=== PATIENT | female | born 1985 | race Caucasian/White ===

== ENCOUNTER → 2017-03-27 | Outpatient (CLI) | payer OTHER ==
[2017-03-27 11:42] LABS: CH 31.6; CHCM 34.9; HCT 43.7 % (34.0-46.0); HDW 2.22; HGB 15.2 gm/dL (11.4-16.0); MCH 31.6 pg (25.0-35.0); MCHC 34.8 g/dL (31.0-37.0); MCV 90.7 fL (80.0-100.0); Mean Platelet Volume 7.6; RBC 4.82 m/uL (3.80-5.40); RDW 11.8 % (11.5-15.5); WBC 8.2 k/uL (3.8-10.6)
[2017-03-27 11:57] LABS: Glucose 85 mg/dL (74-99); Non-African American GFR(MDRD) >60 (>60 ml/min/1.73 sqM)
[2017-03-27 12:27] LABS: Hepatitis B Surface Ag Index 0.05
[2017-03-27 15:48] LABS: Treponemal Ab Non-Reactive (Non-Reactive)
[2017-03-28 05:46] LABS: Toxoplasma Antibody (IgG) <3.0 IU/mL (<7.2)
== END | disposition home or self-care (01) ==
LOC: LABWHC1 10:45
PROVIDERS: ATTEND Obstetrics & Gynecology
DX: O26.811 Pregnancy related exhaustion and fatigue, first trimester (principal); Z3A.00 Weeks of gestation of pregnancy not specified
CPT/HCPCS: 36415; 82565; 82947; 85027; 86762; 86777; 86778; 86780; 86850; 86900; 86901; 87340; 87390

== ENCOUNTER 2017-09-14 15:37 | Outpatient (CLI) | payer OTHER ==
[2017-09-14 16:06] LABS: Amorphous Sediment,Urine Rare /hpf; Appearance,Urine Clear (Clear); Bacteria,Urine Occasional /hpf; Bilirubin,Urine Negative (Negative); Blood,Urine Negative (Negative); Color,Urine Light Yellow; Glucose,Urine (UA) Negative (Negative); Ketones,Urine Negative (Negative); Leukocyte Esterase,Urine Moderate (Negative); Mucus,Urine Rare /hpf; Nitrite,Urine Negative (Negative); Protein,Urine Negative (Negative); RBC,Urine 3 /hpf (0-5); Specific Gravity,Urine 1.004 (1.001-1.035); Squamous Epithelial Cell,Urine 2 /hpf (0-4); Urobilinogen,Urine <2.0 mg/dL (<2.0); WBC,Urine 19 /hpf (0-5)
[2017-09-14 16:13] VITALS: BP 118/68; PULSE 80; RESP 18; TEMP 97.6
--- NOTE | 2017-10-04 07:54 | P.MSEPDOC ---
Presenting Problems - Arrival Data Date of Arrival on Unit: 09/14/17 Time of Arrival on Unit: 15:30 Mode of Transport: Ambulatory - Complaint OB-Reason for Admission/Chief Complaint: Pain Comment: sharp lower abdominal pain since 1329 today Medical History - Information : 1 Para: 0 Term: 0 : 0 Abortions: Spontaneous or Elective: 0 Number of Living Children: 0 - Gestational Age Gestational Age by LISANDRA (wks/days): 31 Weeks and 6 Days Review of Systems - Review of Systems Constitutional: No problems Breast: No problems ENT: No problems Cardiovascular: No problems Respiratory: No problems Gastrointestinal: No problems Genitourinary: No problems Musculoskeletal: No problems Neurological: No problems Skin: No problems Vital Signs - Temperature Temperature: 97.6 F Temperature Source: Temporal Artery Scan - Pulse Right Sitting Brachial Pulse Rate: 80 Pulse Assessment Method: Automatic Cuff - Respirations Respiratory Rate: 18 Oxygen Delivery Method: Room Air - Blood Pressure Right Arm Sitting Blood Pressure: 118/68 Blood Pressure Mean: 84 Blood Pressure Source: Automatic Cuff Medical Screen Scoring (Pre) - Cervical Exam Dilation: Exam Deferred Effacement: Exam Deferred - Uterine Contractions Frequency: > 5 minutes apart = 1 Duration: N/A Intensity: N/A - Maternal Vital Signs Maternal Temperature: N/A Maternal Blood Pressure: N/A Signs of Preeclampsia: N/A Maternal Respirations: N/A - Pain Assessment Pain Location and Character: Abdomen Pain Scale Used: Numeric (1 - 10) Pain Intensity: 7 Pain Management Goal: 3 - Maternal Trauma Maternal Trauma: N/A - Assessment Baseline FHR: 130 Heart Rate - NICHD Category: Category I (Normal) = 0 NST: Reactive Position: N/A Station: N/A - Total Score Total Score (Pre): 1 - Level of Risk Level of Risk: Low (0-5) Medical Screen Scoring (Post) - Cervical Exam Dilation: 0 cm = 0 - Uterine Contractions Frequency: > 5 minutes apart = 1 Duration: N/A Intensity: N/A - Maternal Vital Signs Maternal Temperature: N/A Maternal Blood Pressure: N/A Signs of Preeclampsia: N/A Maternal Respirations: N/A - Pain Assessment Pain Intensity: 0 Pain Management Goal: 0 - Total Score Total Score (Post): 1 - Post Treatment Level of Risk Post Treatment Level of Risk: N/A Physician Notification (Post) - Physician Notified Physician Notified Date: 09/14/17 Physician Notified Time: 17:20 Physician/Practitioner Notified:: Dr Potter Spoke With: Dr Potter New Order Received: Yes - Notification Comment Comment: FFN neg, cervix closed, pt denies pain since laying down in triage. Discharge home and follow up with Dr Mott as scheduled. Disposition - Disposition Discharge Date: 09/14/17 Discharge Time: 17:37 I agree with the RN Medical Screening Exam: Yes Risk & Benefit of care provided described in d/c instruction: Yes Diagnosis: UNSPECIFIED ABDOMINAL PAIN
== END 2017-09-14 17:38 | disposition home or self-care (01) ==
LOC: FBPOP 15:37
PROVIDERS: ATTEND Obstetrics & Gynecology
DX: O26.893 Other specified pregnancy related conditions, third trimester (principal); R10.30 Lower abdominal pain, unspecified; Z3A.31 31 weeks gestation of pregnancy
CPT/HCPCS: 59025; 82731; 81001; G0463; 99213

== ENCOUNTER 2017-10-21 18:26 | Outpatient (CLI) | payer OTHER ==
[2017-10-21 18:58] VITALS: BP 117/85; PULSE 90; TEMP 98.4
[2017-10-21 20:12] VITALS: RESP 16
--- NOTE | 2017-10-22 06:45 | P.MSEPDOC ---
Presenting Problems - Arrival Data Date of Arrival on Unit: 10/21/17 Time of Arrival on Unit: 18:26 Mode of Transport: Ambulatory - Complaint OB-Reason for Admission/Chief Complaint: Possible Onset of Labor Comment: contractions every 5-10min, gush of fluid on saturday. Medical History - Information : 1 Para: 0 Term: 0 : 0 Abortions: Spontaneous or Elective: 0 Number of Living Children: 0 - Gestational Age Gestational Age by LISANDRA (wks/days): 37 Weeks and 1 Days - History Complications: Smoker Review of Systems - Review of Systems Constitutional: No problems Breast: No problems ENT: No problems Cardiovascular: No problems Respiratory: No problems Gastrointestinal: No problems Genitourinary: No problems Musculoskeletal: No problems Neurological: No problems Skin: No problems Vital Signs - Temperature Temperature: 98.4 F Temperature Source: Oral - Pulse Right Sitting Brachial Pulse Rate: 90 Pulse Assessment Method: Automatic Cuff - Respirations Respiratory Rate: 16 Oxygen Delivery Method: Room Air - Blood Pressure Right Arm Sitting Blood Pressure: 117/85 Blood Pressure Mean: 95 Blood Pressure Source: Automatic Cuff Medical Screen Scoring (Pre) - Cervical Exam Dilation: 1-3 cm = 1 - Uterine Contractions Frequency: > or = 36 weeks =2 Duration: > 40 seconds = 2 Intensity: N/A - Maternal Vital Signs Maternal Temperature: N/A Maternal Blood Pressure: N/A Signs of Preeclampsia: N/A Maternal Respirations: N/A - Pain Assessment Pain Location and Character: Abdomen Pain Scale Used: Numeric (1 - 10) Pain Intensity: 8 Pain Description: Cramping, Pressure - Maternal Trauma Maternal Trauma: N/A - Assessment Baseline FHR: 140 Heart Rate - NICHD Category: Category I (Normal) = 0 NST: Reactive Position: N/A Station: N/A - Total Score Total Score (Pre): 5 - Level of Risk Level of Risk: Low (0-5) Medical Screen Scoring (Post) - Cervical Exam Dilation: 1-3 cm = 1 Effacement: Exam Deferred Membranes: Intact - Uterine Contractions Frequency: > 5 minutes apart = 1 Duration: > 40 seconds = 2 Intensity: N/A - Maternal Vital Signs Maternal Temperature: N/A Maternal Blood Pressure: N/A Signs of Preeclampsia: N/A Maternal Respirations: N/A - Pain Assessment Pain Location and Character: Abdomen Pain Scale Used: Numeric (1 - 10) Pain Intensity: 8 Pain Management Goal: 0 Pain Description: *Acute, Pressure Pain Frequency: Intermittent Pain Duration Units: Minutes Pain Behavior: Vocalization Non-Pharmacological Interventions: Distraction, Relaxation Technique - Assessment Heart Rate: 145 Heart Rate - NICHD Category: Category I (Normal) = 0 NST: Reactive Position: N/A Station: N/A - Total Score Total Score (Post): 4 - Post Treatment Level of Risk Post Treatment Level of Risk: Low (0-5) Physician Notification (Post) - Physician Notified Physician Notified Date: 10/21/17 Physician Notified Time: 19:55 Physician/Practitioner Notified:: Dr. Valente Spoke With: Dr. Valente New Order Received: Yes (Discharge) - Notification Comment Comment: Pt cleared for discharge home at this time and to follow up with [facility] in office. Disposition - Disposition OB Disposition: Discharge to home Discharge Date: 10/21/17 Discharge Time: 19:55 I agree with the RN Medical Screening Exam: Yes Risk & Benefit of care provided described in d/c instruction: Yes Diagnosis: FALSE LABOR AT OR AFTER 37 COMPLETED WEEKS OF GESTATION
== END 2017-10-21 19:55 | disposition home or self-care (01) ==
LOC: FBPOP 18:26
PROVIDERS: ATTEND Obstetrics & Gynecology
DX: O47.1 False labor at or after 37 completed weeks of gestation (principal); O99.89 Other specified diseases and conditions complicating pregnancy, childbirth and the puerperium; N89.8 Other specified noninflammatory disorders of vagina; O99.333 Smoking (tobacco) complicating pregnancy, third trimester; Z3A.37 37 weeks gestation of pregnancy
CPT/HCPCS: 59025; G0463; 99213

== ENCOUNTER 2017-10-23 09:18 | Outpatient (CLI) | payer OTHER ==
[2017-10-23 10:25] VITALS: BP 112/75; PULSE 86; RESP 16; TEMP 98.6
--- NOTE | 2017-10-24 08:31 | P.MSEPDOC ---
Presenting Problems - Arrival Data Date of Arrival on Unit: 10/23/17 Time of Arrival on Unit: 09:18 Mode of Transport: Ambulatory - Complaint OB-Reason for Admission/Chief Complaint: Rule Out SROM Medical History - Information : 1 Para: 0 Term: 0 : 0 Abortions: Spontaneous or Elective: 0 Number of Living Children: 0 - Gestational Age Gestational Age by LISANDRA (wks/days): 37 Weeks and 3 Days - History Complications: Smoker Review of Systems - Review of Systems Constitutional: No problems Breast: No problems ENT: No problems Cardiovascular: No problems Respiratory: No problems Gastrointestinal: No problems Genitourinary: No problems Musculoskeletal: No problems Neurological: No problems Skin: No problems Vital Signs - Temperature Temperature: 98.6 F Temperature Source: Tympanic - Pulse Right Brachial Pulse Rate: 86 Pulse Assessment Method: Automatic Cuff - Respirations Respiratory Rate: 16 Oxygen Delivery Method: Room Air - Blood Pressure Right Arm Blood Pressure: 112/75 Blood Pressure Mean: 87 Blood Pressure Source: Automatic Cuff Medical Screen Scoring (Pre) - Cervical Exam Dilation: 1-3 cm = 1 Membranes: Intact - Uterine Contractions Frequency: N/A Duration: N/A Intensity: N/A - Maternal Vital Signs Maternal Temperature: N/A Signs of Preeclampsia: N/A Maternal Respirations: N/A - Pain Assessment Pain Location and Character: Abdomen Pain Scale Used: Numeric (1 - 10) Pain Intensity: 8 Pain Management Goal: 2 Pain Description: *Acute, Cramping Pain Radiation Location: na Pain Frequency: Intermittent Pain Duration: 2 Pain Duration Units: Minutes Pain Behavior: Vocalization Pain Aggravating Factors: None - Maternal Trauma Maternal Trauma: N/A - Assessment Baseline FHR: 145 Heart Rate - NICHD Category: Category I (Normal) = 0 NST: Reactive Position: N/A Station: N/A - Total Score Total Score (Pre): 1 - Level of Risk Level of Risk: Low (0-5) Physician Notification (Pre) - Physician Notified Physician Notified Date: 10/23/17 Physician Notified Time: 10:00 Physician/Practitioner Notifed:: Dr. Mott Spoke With: Dr. Mott New Order Received: Yes - Notification Comment Comment: Orders to d/c home Disposition - Disposition OB Disposition: Discharge to home Discharge Date: 02/07/18 Discharge Time: 10:15 I agree with the RN Medical Screening Exam: Yes Risk & Benefit of care provided described in d/c instruction: Yes Diagnosis: FALSE LABOR AT OR AFTER 37 COMPLETED WEEKS OF GESTATION
== END 2017-10-23 10:29 | disposition home or self-care (01) ==
LOC: FBPOP 09:18
PROVIDERS: ATTEND Obstetrics & Gynecology
DX: O47.1 False labor at or after 37 completed weeks of gestation (principal); Z3A.37 37 weeks gestation of pregnancy
CPT/HCPCS: 59025; 84112; G0463; 99213

== ENCOUNTER 2017-10-23 20:04 | Outpatient (CLI) | payer OTHER ==
[2017-10-23 20:56] VITALS: BP 123/71; PULSE 77; RESP 16; TEMP 96.7
--- NOTE | 2017-11-02 10:38 | P.MSEPDOC ---
Presenting Problems - Arrival Data Date of Arrival on Unit: 10/23/17 Time of Arrival on Unit: 20:04 Mode of Transport: Ambulatory - Complaint OB-Reason for Admission/Chief Complaint: Rule Out SROM Medical History - Information : 1 Para: 0 Term: 0 : 0 Abortions: Spontaneous or Elective: 0 Number of Living Children: 0 - Gestational Age Gestational Age by LISANDRA (wks/days): 37 Weeks and 3 Days - History Complications: Smoker Review of Systems - Review of Systems Constitutional: No problems Breast: No problems ENT: No problems Cardiovascular: No problems Respiratory: No problems Gastrointestinal: No problems Genitourinary: No problems Musculoskeletal: No problems Neurological: No problems Skin: No problems Vital Signs - Temperature Temperature: 96.7 F Temperature Source: Temporal Artery Scan - Pulse Right Brachial Pulse Rate: 77 Pulse Assessment Method: Automatic Cuff - Respirations Respiratory Rate: 16 Oxygen Delivery Method: Room Air O2 Sat by Pulse Oximetry: 97 - Blood Pressure Right Arm Blood Pressure: 123/71 Blood Pressure Mean: 88 Blood Pressure Source: Automatic Cuff Medical Screen Scoring (Pre) - Cervical Exam Dilation: 1-3 cm = 1 Membranes: Intact - Uterine Contractions Frequency: N/A - Maternal Vital Signs Maternal Temperature: N/A Maternal Blood Pressure: N/A Signs of Preeclampsia: N/A Maternal Respirations: N/A - Pain Assessment Pain Location and Character: Abdomen Pain Scale Used: Numeric (1 - 10) Pain Intensity: 6 Pain Description: Cramping Pain Frequency: Intermittent Pain Duration: 10 Pain Duration Units: Minutes Pain Behavior: None Exhibited Pain Aggravating Factors: None - Maternal Trauma Maternal Trauma: N/A - Assessment Baseline FHR: 150 Heart Rate - NICHD Category: Category I (Normal) = 0 NST: Reactive Position: N/A - Total Score Total Score (Pre): 1 - Level of Risk Level of Risk: Low (0-5) Physician Notification (Pre) - Physician Notified Physician Notified Date: 10/23/17 Physician Notified Time: 20:36 Physician/Practitioner Notifed:: Dr. Esparza Spoke With: Dr. Esparza New Order Received: Yes - Notification Comment Comment: Dr. Esparza called and given report on pt in triage. Pt c/o of ROM at 1900 with a gush after getting out of shower. Negative amnisure, vag exam of 1/ thick/high.Reactive NST. reported gbs pos. Orders recieved to d/c pt to home. Disposition - Disposition OB Disposition: Discharge to home Discharge Date: 10/23/17 Discharge Time: 20:40 I agree with the RN Medical Screening Exam: Yes Risk & Benefit of care provided described in d/c instruction: Yes Diagnosis: FALSE LABOR AT OR AFTER 37 COMPLETED WEEKS OF GESTATION
== END 2017-10-23 20:40 | disposition home or self-care (01) ==
LOC: FBPOP 20:04
PROVIDERS: ATTEND Obstetrics & Gynecology
DX: O47.03 False labor before 37 completed weeks of gestation, third trimester (principal); O99.333 Smoking (tobacco) complicating pregnancy, third trimester; Z3A.37 37 weeks gestation of pregnancy
CPT/HCPCS: 59025; 84112; G0463; 99213

== ENCOUNTER 2017-11-04 11:11 | Outpatient (CLI) | payer OTHER ==
[2017-11-04 13:38] VITALS: BP 116/73; PULSE 73; RESP 18; TEMP 97.9
--- NOTE | 2017-12-06 12:16 | P.MSEPDOC ---
Presenting Problems - Arrival Data Date of Arrival on Unit: 11/04/17 Time of Arrival on Unit: 11:11 Mode of Transport: Wheelchair Medical History - Information : 1 Para: 0 Term: 0 : 0 Abortions: Spontaneous or Elective: 0 Number of Living Children: 0 - Gestational Age Gestational Age by LISANDRA (wks/days): 39 Weeks and 1 Days Vital Signs - Temperature Temperature: 97.9 F Temperature Source: Temporal Artery Scan - Pulse Right Pulse Oximetery Pulse Rate: 73 Pulse Assessment Method: Pulse Oximetry - Respirations Respiratory Rate: 18 Oxygen Delivery Method: Room Air O2 Sat by Pulse Oximetry: 98 - Blood Pressure Right Arm Blood Pressure: 116/73 Blood Pressure Mean: 87 Blood Pressure Source: Automatic Cuff Medical Screen Scoring (Post) - Cervical Exam Dilation: 1-3 cm = 1 Membranes: Intact - Uterine Contractions Frequency: > 5 minutes apart = 1 Duration: > 40 seconds = 2 Intensity: N/A - Maternal Vital Signs Maternal Temperature: N/A Maternal Blood Pressure: N/A Signs of Preeclampsia: N/A Maternal Respirations: N/A - Pain Assessment Pain Location and Character: Abdomen Pain Scale Used: Numeric (1 - 10) Pain Intensity: 8 Pain Management Goal: 2 Pain Description: Cramping Pain Radiation Location: none Pain Frequency: Intermittent Pain Duration: 9 Pain Duration Units: Hours Pain Behavior: Vocalization Effects of Pain: none Pain Aggravating Factors: None Pharmacological Interventions: Discuss Pain Med Options Non-Pharmacological Interventions: Position/Reposition, Reduce Environmental Stimuli - Maternal Trauma Maternal Trauma: N/A - Assessment Heart Rate: 140 Heart Rate - NICHD Category: Category I (Normal) = 0 NST: Reactive Position: N/A Station: N/A - Total Score Total Score (Post): 4 - Post Treatment Level of Risk Post Treatment Level of Risk: Low (0-5) Physician Notification (Post) - Physician Notified Physician Notified Date: 11/04/17 Physician Notified Time: 12:36 Physician/Practitioner Notified:: Pantera Spoke With: Pantera New Order Received: Yes - Notification Comment Comment: pt here for contractions, cervix 1cm, 50%, blottable, no change after 1 hour. contractions spaced out after 45 min. order to discharge pt. Disposition - Disposition OB Disposition: Discharge to home Discharge Date: 11/04/17 Discharge Time: 12:40 I agree with the RN Medical Screening Exam: Yes Risk & Benefit of care provided described in d/c instruction: Yes Diagnosis: FALSE LABOR AT OR AFTER 37 COMPLETED WEEKS OF GESTATION
== END 2017-11-04 12:40 | disposition home or self-care (01) ==
LOC: FBPOP 11:11
PROVIDERS: ATTEND Obstetrics & Gynecology
DX: O47.1 False labor at or after 37 completed weeks of gestation (principal); Z3A.39 39 weeks gestation of pregnancy
CPT/HCPCS: 59025; G0463; 99213

== ENCOUNTER 2017-11-10 10:15 | Inpatient (IN) | payer OTHER ==
--- NOTE | 2017-11-14 20:23 | P.HPOB ---
History of Present Illness H&P Date: 11/14/17 Chief Complaint: Induction of labor This is a 32-year-old female 1 para 0 with an estimated date of confinement of 11/10/2017, estimated gestational age of 40-5/7 weeks, who presents for induction of labor secondary to postdates. She has been feeling frequent contractions. course has been essentially uncomplicated. labs: GC/Chlamydia-negative Toxoplasma-negative Random glucose-85 Hepatitis B surface antigen-negative Hemoglobin-15.2 HIV-nonreactive Rubella-nonimmune Blood type-oh positive Antibody screen-negative Obstetrical ultrasound-normal anatomy One hour Glucola-153 Three-hour Glucola-within normal limits Group B streptococcus-positive Obstetrical history: . Gynecologic history: History of Trichomonas and chlamydia treated many years ago Social history: She is single. Review of Systems Constitutional: Reports weight loss, Denies chills, Denies fever Eyes: denies blurred vision, denies pain Ears, nose, mouth and throat: Denies headache, Denies sore throat Cardiovascular: Denies chest pain, Denies shortness of breath Respiratory: Denies cough Genitourinary: Reports pelvic pain, Reports Musculoskeletal: Reports low back pain Neurological: Denies numbness, Denies weakness Past Medical History Past Medical History: No Reported History History of Any Multi-Drug Resistant Organisms: None Reported Past Surgical History: No Surgical Hx Reported Past Psychological History: No Psychological Hx Reported Smoking Status: Current every day smoker Past Alcohol Use History: None Reported Past Drug Use History: Marijuana Additional Drug Use History / Comment(s): History of marijuana prior to . - Past Family History Father Family Medical History: CVA/TIA Medications and Allergies Home Medications Medication Instructions Recorded Confirmed Type Pnv,Calcium 72/Iron/Folic Acid 1 tab PO DAILY 09/14/17 11/04/17 History [ Plus Tablet] Allergies Allergy/AdvReac Type Severity Reaction Status Date / Time No Known Allergies Allergy Verified 10/23/17 20:15 Exam Osteopathic Statement: *. No significant issues noted on an osteopathic structural exam other than those noted in the History and Physical/Consult. HEENT: Within normal limits Heart: Regular rate and rhythm Lungs: Clear to auscultation bilaterally Abdomen: Cervix: 1-1/2 cm/70%/-2 heart tones: 140s by Doppler Extremities: Negative Homans Assessment and Plan (1) 40 weeks gestation of Status: Acute Code(s): Z3A.40 - 40 WEEKS GESTATION OF SNOMED Code( s): 08735418 Plan: Proceed with oxytocin induction of labor. Expectant management. Epidural anesthesia if desired.
[2017-11-15] MEDS: LACTATED RINGERS 1,000 ML IV SCH ×3 (00:05→08:52)
[2017-11-15] MEDS: OXYTOCIN 20 UNITS/1000 ML NS 1,000 ML IV SCH ×2 (00:15→08:53)
[2017-11-15] MEDS ORDERED: CARBOPROST TROMETHAMINE 250 MCG/ML 1 ML AMP IM PRN (00:16)
[2017-11-15] MEDS ORDERED: OXYTOCIN 10 UNIT/ML 1 ML VIAL IM PRN (00:16)
[2017-11-15] MEDS ORDERED: LIDOCAINE 1% (PF) 10 MG/ML (30 ML SDV) SQ PRN (00:16)
[2017-11-15] MEDS ORDERED: METHYLERGONOVINE 0.2 MG/ML 1 ML AMP IM PRN (00:16)
[2017-11-15] MEDS ORDERED: LIDOCAINE 1% 20 ML VIAL (10MG/ML) FOR IV START INTRADERMA PRN (00:16)
[2017-11-15] MEDS ORDERED: AMPICILLIN 2,000 MG in SODIUM CHLORIDE 0.9% 100 ML IVPB STA (00:16)
[2017-11-15] MEDS ORDERED: TERBUTALINE 1 MG/ML VIAL SQ PRN (00:16)
[2017-11-15] MEDS ORDERED: BUTORPHANOL 1 MG/ML 1 ML VIAL IV PRN (00:23)
[2017-11-15] MEDS ORDERED: WITCH HAZEL 1 EACH MED..PAD TOPICAL PRN (00:27)
[2017-11-15] MEDS ORDERED: LANOLIN CREAM 5 GM TUBE TOPICAL PRN (00:27)
[2017-11-15] MEDS ORDERED: HYDROCORTISONE 2.5% RECTAL CREAM 30 GM TUBE RECTAL PRN (00:27)
[2017-11-15] MEDS ORDERED: ZOLPIDEM 5 MG TAB PO PRN (00:27)
[2017-11-15] MEDS ORDERED: diphenhydrAMINE 50 MG CAP PO PRN (00:27)
[2017-11-15] MEDS ORDERED: diphenhydrAMINE 50 MG/ML 1 ML VIAL IVP PRN ×2 (00:27)
[2017-11-15] MEDS ORDERED: MEASLES-MUMPS-RUBELLA VACC/PF 12,500 UNIT/0.5 ML VIAL SQ ONE (00:27)
[2017-11-15] MEDS ORDERED: diphenhydrAMINE 25 MG CAP PO PRN (00:27)
[2017-11-15] MEDS ORDERED: SIMETHICONE 80 MG CHEWABLE PO PRN (00:27)
[2017-11-15] MEDS ORDERED: BENZOCAINE/MENTHOL SPRAY 1 GM/SPRAY AEROSOL TOPICAL PRN (00:27)
--- NOTE | 2017-11-15 00:30 | P.HPOB ---
History of Present Illness H&P Date: 11/15/17 Chief Complaint: Intrauterine at term active labor Fully she is a 32-year-old at 39 weeks gestation who arrives dilated to complete and +2 station she was seen in labor and delivery earlier in the day was sent home. She reports that she continues to her family she was in labor but they did not bring her in until almost midnight and at that point she was having serious and severe pressure sensation like the baby was coming out on arrival they moved her immediately to [address] where she was noted be complete and +2 station. Please see delivery summary for information regarding this. She denies any past medical history or surgical history and she denies any problems with the . Pertinent labs do include B+ blood type, Rh antibody was negative, rubella was nonimmune, hepatitis B surface antigen and RPR were negative. HIV was also negative. She is group B strep positive but there is no time to get any antibiotics and. On physical exam her heart is regular, lungs are clear, extremities are without pain. Osteopathic exam is unremarkable. Abdomen soft and gravid uterus is noted. heart tones are on initial presentation in the 70s. Assessment intrauterine at term active labor: Spontaneous rupture membranes on arrival to labor and delivery: Suspected bradycardia. Plan expect vaginal delivery. Delivery was completed very shortly after initial evaluation. Past Medical History Past Medical History: No Reported History History of Any Multi-Drug Resistant Organisms: None Reported Past Surgical History: No Surgical Hx Reported Past Psychological History: No Psychological Hx Reported Smoking Status: Current every day smoker Past Alcohol Use History: None Reported Past Drug Use History: Marijuana Additional Drug Use History / Comment(s): History of marijuana prior to . - Past Family History Father Family Medical History: CVA/TIA Medications and Allergies Home Medications Medication Instructions Recorded Confirmed Type Pnv,Calcium 72/Iron/Folic Acid 1 tab PO DAILY 09/14/17 11/15/17 History [ Plus Tablet] Allergies Allergy/AdvReac Type Severity Reaction Status Date / Time No Known Allergies Allergy Verified 11/15/17 00:15 Exam Osteopathic Statement: *. No significant issues noted on an osteopathic structural exam other than those noted in the History and Physical/Consult. - Vital Signs Vital signs: Intake and Output 11/14/17 11/14/17 11/15/17 14:59 22:59 06:59 Other: Weight 63.503 kg Patient Weight 11/15/17 06:59 Weight 63.503 kg
--- NOTE | 2017-11-15 00:35 | P.PROBDLV ---
Vaginal Delivery Note - . Vaginal Delivery Note: Patient progressed to complete and pushing with precipitous delivery of a viable male over a first-degree perineal laceration with vacuum assist. On her initial presentation the immediate heart rate was recorded is in the 70s. Due to this low heart rate and being unable to tell if this is something that has been an ongoing process I did explain to the patient that we were going to do a vacuum-assisted delivery to expedite the delivery. Vacuum was placed with the baby in left occiput anterior position and once the vacuum was placed it was pumped up to the very bottom of the green on the vacuum. And with one pull and no pop offs in a steady mild traction with the patient doing her best to assist with pushing the baby's head was delivered. Immediately discontinued connected the vacuum and the total time of vacuum was on was less than 20 seconds. Anterior posterior shoulders were then easily delivered with gentle downward upper traction followed by the remainder the baby. Mouth nares were then bulb suctioned and baby was placed on mother's abdomen where the umbilical cord was clamped cut usual fashion an nursery personnel was present to assume care. Cord blood gas was obtained. Once this was accomplished placenta was then delivered intact and Pitocin was added to the IV. A first- degree perineal laceration was noted and easily repaired with 3-0 Vicryl following 1% Xylocaine for analgesia. scores were 6 at one and 9 at 5 minutes. Weight was 7 lbs. 6 oz. due to group B strep positive status and no antibiotics baby was taken to special care nursery.
[2017-11-15 00:48] LABS: Basophils # (A) 0.1 k/uL (0-0.2); Basophils % (A) 0 %; Eosinophils % (A) 0 %; HCT 45.2 % (34.0-46.0); HGB 15.3 gm/dL (11.4-16.0); Lymphocytes # (A) 1.7 k/uL (1.0-4.8); Lymphocytes % (A) 7 %; MCH 31.9 pg (25.0-35.0); MCHC 33.8 g/dL (31.0-37.0); MCV 94.4 fL (80.0-100.0); Mean Platelet Volume 9.6; Monocytes # (A) 0.7 k/uL (0-1.0); Monocytes % (A) 3 %; Neutrophils # (A) 22.2 k/uL (1.3-7.7); Neutrophils % (A) 89 %; Platelet Count 210 k/uL (150-450); RDW 12.5 % (11.5-15.5); WBC 24.8 k/uL (3.8-10.6)
[2017-11-15] MEDS: SENNOSIDES-DOCUSATE SODIUM 1 EACH TAB PO SCH ×2 (07:29→19:41)
[2017-11-15] MEDS: IBUPROFEN 600 MG TAB PO PRN ×3 (07:30→19:40)
[2017-11-15] MEDS: AMPICILLIN 1,000 MG in SODIUM CHLORIDE 0.9% 50 ML IVPB SCH ×2 (08:45→08:46)
[2017-11-15] MEDS: ACETAMINOPHEN TAB 325 MG TAB PO PRN ×2 (09:00→15:18)
[2017-11-16] MEDS: ACETAMINOPHEN TAB 325 MG TAB PO PRN ×4 (00:36→17:15)
[2017-11-16] MEDS: IBUPROFEN 600 MG TAB PO PRN (04:27)
[2017-11-16] MEDS: SENNOSIDES-DOCUSATE SODIUM 1 EACH TAB PO SCH (09:55)
--- NOTE | 2017-11-16 11:29 | P.PNOBGVD ---
Subjective - Subjective Principal diagnosis: Status post vaginal delivery day #1 Interval history: Patient is doing well. She is breast-feeding. Lochia is decreasing. Pain is fairly well controlled. Baby does need to stay 1 more day per pediatrics. Patient reports: Reports appetite normal, Reports voiding normally, Reports pain well controlled, Reports ambulating normally [place]: doing well, nursing well Objective - Latest Vital Signs Latest vital signs: Vital Signs Temp Pulse Resp BP Pulse Ox 11/16/17 08:00 98.4 F 66 17 110/56 11/16/17 00:00 98.4 F 61 16 96/62 11/15/17 20:00 98.4 F 63 18 99/65 11/15/17 15:25 98.2 F 57 L 17 113/68 98 11/15/17 12:00 98.1 F 50 L 18 107/70 98 Intake and Output 11/15/17 11/16/17 11/16/17 22:59 06:59 14:59 Other: # Voids 2 1 2 - Exam Extremities: Present: normal. Absent: tenderness, edema Abdomen: Present: normal appearance, soft. Absent: distention, tenderness Uterus: Present: normal, firm. Absent: tenderness Assessment and Plan Assessment: Impression is status post vaginal delivery day #1 (1) 40 weeks gestation of Current Visit: Yes Status: Acute Code(s): Z3A.40 - 40 WEEKS GESTATION OF SNOMED Code(s): 96108587 Plan: Plan is to continue with care today. Anticipate discharge home tomorrow.
[2017-11-17] MEDS: SENNOSIDES-DOCUSATE SODIUM 1 EACH TAB PO SCH ×2 (00:53→09:13)
[2017-11-17 09:15] VITALS: BP 111/66; PULSE 64; RESP 18; TEMP 98.1
--- NOTE | 2017-11-17 11:14 | P.DS ---
Providers Date of admission: 11/15/17 00:05 Expected date of discharge: 11/17/17 Attending physician: Vivian Mott Primary care physician: Stated None - Discharge Diagnosis(es) (1) 40 weeks gestation of Current Visit: Yes Status: Acute Hospital Course: This is a 32-year-old female 1 para 0 at 40-6/7 weeks who presented in active labor. She delivered vaginally a viable male infant on 11/15/2017 with scores of 6 at 1 minute and 9 at 5 minutes and infant weight of 7 pounds 5.8 ounces. Her course has been uncomplicated. She is breast- feeding. Lochia is decreasing. Pain is fairly well controlled with ibuprofen. Vital signs are stable. Abdomen is soft with fundus firm and nontender. Extremities show negative Homans. Impression is status post vaginal delivery day #2. Plan is to discharge home today. Routine instructions are given. She will be given a prescription for ibuprofen. She states she already has a breast pump. She is advised to follow up in the office in 6 weeks for a check. She is advised to call the office if she has any further questions or concerns prior to her appointment time. Procedures: Vacuum-assisted vaginal delivery on 11/15/2017 Patient Condition at Discharge: Stable Plan - Discharge Summary New Discharge Prescriptions: New Ibuprofen [Motrin] 600 mg PO Q6HR PRN #60 tab PRN Reason: Mild Pain Or Fever >= 100.5 Continue Pnv,Calcium 72/Iron/Folic Acid [ Plus Tablet] 1 tab PO DAILY Discharge Medication List Pnv,Calcium 72/Iron/Folic Acid [ Plus Tablet] 1 tab PO DAILY 09/14/17 [ History] Ibuprofen [Motrin] 600 mg PO Q6HR PRN #60 tab 11/17/17 [Rx] Follow up Appointment(s)/Referral(s): Vivian Mott DO [Doctor of Osteopathic Medicine] - 6 Weeks Activity/Diet/Wound Care/Special Instructions: Instructions 1. Do not begin any exercise program for 3 weeks. 2. Do not resume sexual relations for 3 weeks or longer if uncomfortable. 3. You may take tub baths or showers at any time. 4. You may use tampons if desired after 3 weeks. 5. Keep the area of episiotomy (stitches) clean and dry. 6. If you are not nursing, wear a good fitting, supportive bra during the day and limit fluid intake for at least 1 week to prevent breast engorgement. 7. Call the office, [phone], within the next week to make appointment for your 6 week checkup if it has not already been made. 8. Report any of the following occurrences to the doctor promptly: a. Heavy, excessive bleeding b. Chills, fever c. Burning or frequency of urination d. Pain or redness and breasts if nursing e. Increasing pain or swelling in episiotomy (stitches). In addition to the above instructions, the following additional should be followed: 1. No heavy lifting or straining (exercising) until after 6 week checkup. 2. Keep abdominal incision clean and dry: You may wear a dressing if more comfortable. 3. Make office appointment for 10 days after going home or as instructed by her doctor. Discharge Disposition: HOME SELF-CARE
== END 2017-11-17 11:35 | disposition home or self-care (01) | DRG 775 ==
LOC: 4FBP 11-15 00:05
PROVIDERS: ADMIT Obstetrics & Gynecology; ATTEND Obstetrics & Gynecology
PROC: 10D07Z6 Extraction of Products of Conception, Vacuum, Via Natural or Artificial Opening (ICD-10-PCS; principal; 2017-11-15)
PROC: 3E0134Z Introduction of Serum, Toxoid and Vaccine into Subcutaneous Tissue, Percutaneous Approach (ICD-10-PCS; 2017-11-15)
PROC: 0HQ9XZZ Repair Perineum Skin, External Approach (ICD-10-PCS; 2017-11-15)
PROC: 3E033VJ Introduction of Other Hormone into Peripheral Vein, Percutaneous Approach (ICD-10-PCS; 2017-11-15)
DX: O48.0 Post-term pregnancy (principal); O62.3 Precipitate labor; O99.334 Smoking (tobacco) complicating childbirth; O70.0 First degree perineal laceration during delivery; O99.824 Streptococcus B carrier state complicating childbirth; Z37.0 Single live birth; Z3A.40 40 weeks gestation of pregnancy; Z23 Encounter for immunization; Z86.19 Personal history of other infectious and parasitic diseases; Z82.3 Family history of stroke
CPT/HCPCS: 82803; 85025; 88307; 90471; 90707

== ENCOUNTER 2017-11-14 12:22 | Outpatient (CLI) | payer OTHER ==
[2017-11-14 13:48] VITALS: BP 121/79; PULSE 65; RESP 16; TEMP 98.1
--- NOTE | 2017-11-26 08:46 | P.MSEPDOC ---
Presenting Problems - Arrival Data Date of Arrival on Unit: 11/14/17 Time of Arrival on Unit: 12:22 Mode of Transport: Ambulatory - Complaint OB-Reason for Admission/Chief Complaint: Possible Onset of Labor Comment: contractions and spotting Medical History - Information : 1 Para: 0 Term: 0 : 0 Abortions: Spontaneous or Elective: 0 Number of Living Children: 0 - Gestational Age Gestational Age by LISANDRA (wks/days): 40 Weeks and 5 Days Review of Systems - Review of Systems Constitutional: No problems Breast: No problems ENT: No problems Cardiovascular: No problems Respiratory: No problems Gastrointestinal: No problems Genitourinary: No problems Musculoskeletal: No problems Neurological: No problems Skin: No problems Vital Signs - Temperature Temperature: 98.1 F Temperature Source: Temporal Artery Scan - Pulse Right Sitting Brachial Pulse Rate: 65 Pulse Assessment Method: Automatic Cuff - Respirations Respiratory Rate: 16 Oxygen Delivery Method: Room Air O2 Sat by Pulse Oximetry: 97 - Blood Pressure Right Arm Sitting Blood Pressure: 121/79 Blood Pressure Mean: 93 Blood Pressure Source: Automatic Cuff Medical Screen Scoring (Pre) - Cervical Exam Dilation: 1-3 cm = 1 Membranes: Intact - Uterine Contractions Frequency: > 5 minutes apart = 1 - Maternal Vital Signs Maternal Temperature: N/A Maternal Blood Pressure: N/A Signs of Preeclampsia: N/A Maternal Respirations: N/A - Maternal Trauma Maternal Trauma: N/A - Assessment Baseline FHR: 140 Heart Rate - NICHD Category: Category I (Normal) = 0 NST: Reactive Position: N/A Station: N/A - Total Score Total Score (Pre): 2 - Level of Risk Level of Risk: Low (0-5) Physician Notification (Pre) - Physician Notified Physician Notified Date: 11/14/17 Physician Notified Time: 13:40 Physician/Practitioner Notifed:: Pantera Spoke With: Pantera New Order Received: Yes - Notification Comment Comment: Spk c\Dr. Mott, advsd 40 01/20, scheduled for IOL tomorrow, SVE 2 /-3, posterior, firm cervix, brown blood with mucous, no active bleeding. States to d/c home, IOL tomorrow. Disposition - Disposition OB Disposition: Discharge to home, Written follow up instructions reviewed Discharge Date: 11/14/17 Discharge Time: 13:45 I agree with the RN Medical Screening Exam: Yes Risk & Benefit of care provided described in d/c instruction: Yes Diagnosis: FALSE LABOR AT OR AFTER 37 COMPLETED WEEKS OF GESTATION
== END 2017-11-14 13:45 | disposition home or self-care (01) ==
LOC: FBPOP 12:22
PROVIDERS: ATTEND Obstetrics & Gynecology
DX: O47.03 False labor before 37 completed weeks of gestation, third trimester (principal); Z3A.40 40 weeks gestation of pregnancy
CPT/HCPCS: 59025; 84112; G0463; 99213

== ENCOUNTER 2018-05-21 17:36 | Emergency (ER) | payer OTHER ==
[2018-05-21] MEDS ORDERED: SODIUM CHLORIDE 0.9% 1,000 ML IV STA (19:02)
[2018-05-21] MEDS ORDERED: fentaNYL (PF) 50 MCG/ML 2 ML AMP IVP STA (19:06)
[2018-05-21] MEDS ORDERED: MORPHINE SULFATE 4 MG/ML SYRINGE IVP PRN (19:06)
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
[2018-05-21 19:21] VITALS: RESP 16
[2018-05-21 19:32] LABS: Basophils % (A) 0 %; Eosinophils # (A) 0.1 k/uL (0-0.7); Eosinophils % (A) 1 %; HCT 46.2 % (34.0-46.0); HGB 14.9 gm/dL (11.4-16.0); Lymphocytes # (A) 1.5 k/uL (1.0-4.8); Lymphocytes % (A) 11 %; MCH 29.6 pg (25.0-35.0); MCHC 32.3 g/dL (31.0-37.0); MCV 91.5 fL (80.0-100.0); Mean Platelet Volume 6.9; Monocytes # (A) 0.5 k/uL (0-1.0); Monocytes % (A) 4 %; Neutrophils # (A) 10.8 k/uL (1.3-7.7); Neutrophils % (A) 83 %; Platelet Count 289 k/uL (150-450); RBC 5.05 m/uL (3.80-5.40); RDW 12.2 % (11.5-15.5)
[2018-05-21 19:39] LABS: INR 1.1 (<1.2); Prothrombin Time 10.6 sec (9.0-12.0)
[2018-05-21 19:50] LABS: ALT 43 U/L (9-52); AST 29 U/L (14-36); Albumin 4.6 g/dL (3.5-5.0); Alcohol <10 mg/dL; Alkaline Phosphatase 81 U/L (38-126); Anion Gap 9 mmol/L; Blood Urea Nitrogen 8 mg/dL (7-17); Calcium 9.9 mg/dL (8.4-10.2); Carbon Dioxide 24 mmol/L (22-30); Chloride 108 mmol/L (98-107); Glucose 94 mg/dL (74-99); Sodium 141 mmol/L (137-145); Total Bilirubin 0.6 mg/dL (0.2-1.3); Total Protein 7.5 g/dL (6.3-8.2)
[2018-05-21 20:07] LABS: Creatine Kinase 103 U/L (30-135)
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
[2018-05-21 20:19] LABS: Creatine Kinase MB 0.5 ng/mL (0.0-2.4); Troponin I <0.012 ng/mL (0.000-0.034)
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
[2018-05-21] MEDS ORDERED: LIDOCAINE 5% PATCH TOPICAL PRN (21:04)
[2018-05-21 21:36] VITALS: BP 104/63; PULSE 74; TEMP 99.4
[2018-05-21 22:01] LABS: Appearance,Urine Clear (Clear); Bacteria,Urine Rare /hpf; Bilirubin,Urine Negative (Negative); Blood,Urine Negative (Negative); Color,Urine Yellow; Glucose,Urine (UA) Negative (Negative); Ketones,Urine Negative (Negative); Leukocyte Esterase,Urine Large (Negative); Mucus,Urine Rare /hpf; Nitrite,Urine Negative (Negative); PH, Urine 7.5 (5.0-8.0); Protein,Urine Trace (Negative); RBC,Urine 18 /hpf (0-5); Squamous Epithelial Cell,Urine 25 /hpf (0-4); Urobilinogen,Urine <2.0 mg/dL (<2.0); WBC,Urine 9 /hpf (0-5)
[2018-05-21 22:10] LABS: Amphetamine Screen,Urine Not Detected (NotDetected); Barbiturate Screen,Urine Not Detected (NotDetected); Benzodiazepines Screen,Urine Not Detected (NotDetected); Cocaine Screen,Urine Not Detected (NotDetected); Methadone Screen, Urine Not Detected (NotDetected); Opiate Screen,Urine Not Detected (NotDetected); Oxycodone Screen, Urine Not Detected (NotDetected); Phencyclidine Screen,Urine Not Detected (NotDetected); Specific Gravity,Urine >1.050 (1.001-1.035); Tricyclic Antidepressant,Urine Not Detected (NotDetected); Urn Cannabinoid Scrn Detected (NotDetected)
[2018-05-22] MEDS ORDERED: LIDOCAINE 5% PATCH TOPICAL SCH (09:00)
== END 2018-05-21 21:42 | disposition home or self-care (01) ==
LOC: EC 17:36
DX: S20.212A Contusion of left front wall of thorax, initial encounter (principal); F17.200 Nicotine dependence, unspecified, uncomplicated; V48.5XXA Car driver injured in noncollision transport accident in traffic accident, initial encounter; W22.11XA Striking against or struck by driver side automobile airbag, initial encounter; Y92.410 Unspecified street and highway as the place of occurrence of the external cause
CPT/HCPCS: 99285; 96374; 96361; 36415; 93005; 86900; 86901; 80053; 82550; 82553; 84484; 85025; 85610; 85730; 86850; 81001; 81025; 84703; 80306; 80320; 71045; 72125; 70450; 71260; 74177; J3010; Q9967

== ENCOUNTER 2019-04-23 17:31 | Emergency (ER) | payer OTHER ==
[2019-04-23 17:44] VITALS: TEMP 98.4
[2019-04-23] MEDS ORDERED: SODIUM CHLORIDE 0.9% 1,000 ML IV STA (18:05)
--- NOTE | 2019-04-23 18:24 | ED ---
General Adult HPI - General Chief complaint: Abdominal Pain Stated complaint: 10wks preg, cramping Time Seen by Provider: 04/23/19 18:05 Source: patient, RN notes reviewed Mode of arrival: ambulatory Limitations: no limitations - History of Present Illness Initial comments: 33-year-old female presents to the emergency department for a chief complaint of pelvic cramping worse on the left lower abdomen. Patient states that this has been ongoing for 2 hours. Patient is a female currently about 10 weeks . States the first day of her last menstrual period was February 14. States that she followed up at the clinic and was told she was . Patient describes this pain as a cramping pain. Denies any vaginal bleeding. Denies any upper abdominal pain. Patient has not yet had an ultrasound confirming intrauterine .Patient has no other complaints at this time including shortness of breath, chest pain, nausea or vomiting, headache, or visual changes. - Related Data Previous Rx's Medication Instructions Recorded HYDROcodone/APAP 5-325MG [[place] 1 tab PO Q6HR PRN 3 Days #6 tab 05/21/18 5-325] Nitrofurantoin Monohyd/M-Cryst 100 mg PO Q12HR 7 Days cap 04/23/19 [Macrobid] Allergies Allergy/AdvReac Type Severity Reaction Status Date / Time No Known Allergies Allergy Verified 04/23/19 17:44 Review of Systems ROS Statement: Those systems with pertinent positive or pertinent negative responses have been documented in the HPI. ROS Other: All systems not noted in ROS Statement are negative. Past Medical History Past Medical History: No Reported History History of Any Multi-Drug Resistant Organisms: None Reported Past Surgical History: No Surgical Hx Reported Past Anesthesia/Blood Transfusion Reactions: No Reported Reaction Past Psychological History: No Psychological Hx Reported Smoking Status: Current every day smoker Past Alcohol Use History: Rare Past Drug Use History: Marijuana - Past Family History Father Family Medical History: CVA/TIA General Exam Limitations: no limitations General appearance: alert, in no apparent distress Head exam: Present: atraumatic, normocephalic, normal inspection Eye exam: Present: normal appearance, PERRL, EOMI. Absent: scleral icterus, conjunctival injection, periorbital swelling ENT exam: Present: normal exam, mucous membranes moist Neck exam: Present: normal inspection, full ROM. Absent: tenderness, meningismus, lymphadenopathy Respiratory exam: Present: normal lung sounds bilaterally. Absent: respiratory distress, wheezes, rales, rhonchi, stridor Cardiovascular Exam: Present: regular rate, normal rhythm, normal heart sounds. Absent: systolic murmur, diastolic murmur, rubs, gallop, clicks GI/Abdominal exam: Present: soft, tenderness (Some mild left lower quadrant/pelvic tenderness. No rebound or guarding. No right lower quadrant tenderness or upper abdominal tenderness.), normal bowel sounds. Absent: distended, guarding, rebound, rigid External exam: Present: normal external exam. Absent: erythema, swelling, lesions, lacerations, ecchymosis, other Speculum exam: Present: vaginal discharge (Mild white vaginal discharge noted). Absent: erythema, cervical discharge, vaginal bleeding, foreign body, tissue, laceration By manual exam: Present: adnexal tenderness (Mild left adnexal tenderness), uterine tenderness (Mild uterine tenderness). Absent: normal by manual exam, cervical motion tenderness, adnexal mass, uterine enlargement Neurological exam: Present: alert, oriented X3 Psychiatric exam: Present: normal affect, normal mood Course Vital Signs 04/23/19 04/23/19 17:42 21:38 Temperature 98.4 F Pulse Rate 87 72 Respiratory 20 16 Rate Blood Pressure 99/61 109/67 O2 Sat by Pulse 99 99 Oximetry Medical Decision Making - Medical Decision Making 33-year-old female currently 9 weeks , patient of Dr. Mott presents to the emergency department for a chief complaint of left lower quadrant pain. States this has been ongoing since today. On exam patient does have some vaginal discharge noted, no cervical motion tenderness. There is some mild left adnexal tenderness. Therefore ultrasound was ordered to rule out ectopic . Ultrasound shows a viable intrauterine with a heart rate o f 172 and a gestational age around 9 weeks 4 days. I did contact the radiologist and it was confirmed that the age is 9 weeks, not 19 weeks as the impression reads. Urine does show 124 white blood cells and Trichomonas is positive. I spoke with Dr. Valente as Dr. Mott is patient's CUSTOM TAILOR. He rec ommends 2 g of Flagyl for treatment and follow-up tomorrow. Also recommends 100 mg of Macrobid twice a day for 7 days. At this time he does not recommend treating for gonorrhea and chlamydia until we have the results. Patient is agreeable to this plan. She will follow up tomorrow return if she has any worsening symptoms. - Lab Data Result diagrams: 04/23/19 18:28 04/23/19 18:28 Lab Results 04/23/19 04/23/19 04/23/19 Range/Units 18:28 18:28 18:28 WBC 9.7 (3.8-10.6) k/uL RBC 4.59 (3.80-5.40) m/uL Hgb 13.9 (11.4-16.0) gm/dL Hct 40.8 (34.0-46.0) % MCV 88.9 (80.0-100.0) fL MCH 30.3 (25.0-35.0) pg MCHC 34.1 (31.0-37.0) g/dL RDW 12.4 (11.5-15.5) % Plt Count 256 (150-450) k/uL Neutrophils % 71 % Lymphocytes % 21 % Monocytes % 5 % Eosinophils % 1 % Basophils % 0 % Neutrophils # 6.9 (1.3-7.7) k/uL Lymphocytes # 2.0 (1.0-4.8) k/uL Monocytes # 0.5 (0-1.0) k/uL Eosinophils # 0.1 (0-0.7) k/uL Basophils # 0.0 (0-0.2) k/uL Sodium 139 (137-145) mmol/L Potassium 3.9 (3.5-5.1) mmol/L Chloride 107 (98-107) mmol/L Carbon Dioxide 23 (22-30) mmol/L Anion Gap 9 mmol/L BUN 7 (7-17) mg/dL Creatinine 0.48 L (0.52-1.04) mg/dL Est GFR (CKD-EPI)AfAm >90 (>60 ml/min/1.73 sqM) Est GFR (CKD-EPI)NonAf >90 (>60 ml/min/1.73 sqM) Glucose 78 (74-99) mg/dL Calcium 9.4 (8.4-10.2) mg/dL Total Bilirubin 0.3 (0.2-1.3) mg/dL AST 18 (14-36) U/L ALT 18 (9-52) U/L Alkaline Phosphatase 55 (38-126) U/L Total Protein 6.6 (6.3-8.2) g/dL Albumin 4.1 (3.5-5.0) g/dL Amylase 32 (30-110) U/L Lipase 117 (23-300) U/L HCG, Quant 948609.0 mIU/mL Urine Color Urine Appearance (Clear) Urine pH (5.0-8.0) Ur Specific [place] (1.001-1.035) Urine Protein (Negative) Urine Glucose (UA) (Negative) Urine Ketones (Negative) Urine Blood (Negative) Urine Nitrite (Negative) Urine Bilirubin (Negative) Urine Urobilinogen (<2.0) mg/dL Ur Leukocyte Esterase (Negative) Urine RBC (0-5) /hpf Urine WBC (0-5) /hpf Ur Squamous Epith Cells (0-4) /hpf Urine Mucus (None) /hpf Trichomonas Ag (Rapid) (Negative) Blood Type O Positive Blood Type Recheck [facility] ONLY 04/23/19 04/23/19 Range/Units 18:28 18:28 WBC (3.8-10.6) k/uL RBC (3.80-5.40) m/uL Hgb (11.4-16.0) gm/dL Hct (34.0-46.0) % MCV (80.0-100.0) fL MCH (25.0-35.0) pg MCHC (31.0-37.0) g/dL RDW (11.5-15.5) % Plt Count (150-450) k/uL Neutrophils % % Lymphocytes % % Monocytes % % Eosinophils % % Basophils % % Neutrophils # (1.3-7.7) k/uL Lymphocytes # (1.0-4.8) k/uL Monocytes # (0-1.0) k/uL Eosinophils # (0-0.7) k/uL Basophils # (0-0.2) k/uL Sodium (137-145) mmol/L Potassium (3.5-5.1) mmol/L Chloride (98-107) mmol/L Carbon Dioxide (22-30) mmol/L Anion Gap mmol/L BUN (7-17) mg/dL Creatinine (0.52-1.04) mg/dL Est GFR (CKD-EPI)AfAm (>60 ml/min/1.73 sqM) Est GFR (CKD-EPI)NonAf (>60 ml/min/1.73 sqM) Glucose (74-99) mg/dL Calcium (8.4-10.2) mg/dL Total Bilirubin (0.2-1.3) mg/dL AST (14-36) U/L ALT (9-52) U/L Alkaline Phosphatase (38-126) U/L Total Protein (6.3-8.2) g/dL Albumin (3.5-5.0) g/dL Amylase (30-110) U/L Lipase (23-300) U/L HCG, Quant mIU/mL Urine Color Yellow Urine Appearance Cloudy H (Clear) Urine pH 6.5 (5.0-8.0) Ur Specific [place] 1.024 (1.001-1.035) Urine Protein Trace H (Negative) Urine Glucose (UA) Negative (Negative) Urine Ketones Negative (Negative) Urine Blood Negative (Negative) Urine Nitrite Negative (Negative) Urine Bilirubin Negative (Negative) Urine Urobilinogen 2.0 (<2.0) mg/dL Ur Leukocyte Esterase Large H (Negative) Urine RBC 19 H (0-5) /hpf Urine WBC 124 H (0-5) /hpf Ur Squamous Epith Cells 2 (0-4) /hpf Urine Mucus Occasional H (None) /hpf Trichomonas Ag (Rapid) Positive H (Negative) Blood Type Blood Type Recheck Disposition Clinical Impression: Trichomoniasis, Intrauterine Disposition: HOME SELF-CARE Condition: Good Instructions (If sedation given, give patient instructions): Sexually Transmitted Diseases (ED), Safe Sex (ED), Urinary Tract Infection in Women (ED) Additional Instructions: Please take Macrobid as directed. Please follow-up with your CUSTOM TAILOR tomorrow. Return to the emergency department if you have any worsening symptoms. Prescriptions: Nitrofurantoin Monohyd/M-Cryst [Macrobid] 100 mg PO Q12HR 7 Days cap Is patient prescribed a controlled substance at d/c from ED?: No Referrals: Nonstaff,Physician [Primary Care Provider] - 1-2 days Time of Disposition: 21:30
[2019-04-23 19:10] LABS: Basophils % (A) 0 %; Eosinophils # (A) 0.1 k/uL (0-0.7); Eosinophils % (A) 1 %; HCT 40.8 % (34.0-46.0); HGB 13.9 gm/dL (11.4-16.0); Lymphocytes % (A) 21 %; MCH 30.3 pg (25.0-35.0); MCHC 34.1 g/dL (31.0-37.0); MCV 88.9 fL (80.0-100.0); Mean Platelet Volume 7.4; Monocytes # (A) 0.5 k/uL (0-1.0); Monocytes % (A) 5 %; Neutrophils # (A) 6.9 k/uL (1.3-7.7); Neutrophils % (A) 71 %; Platelet Count 256 k/uL (150-450); RBC 4.59 m/uL (3.80-5.40); RDW 12.4 % (11.5-15.5); WBC 9.7 k/uL (3.8-10.6)
[2019-04-23 19:18] LABS: ALT 18 U/L (9-52); AST 18 U/L (14-36); African American GFR (CKD) >90 (>60 ml/min/1.73 sqM); Albumin 4.1 g/dL (3.5-5.0); Alkaline Phosphatase 55 U/L (38-126); Amylase 32 U/L (30-110); Anion Gap 9 mmol/L; Blood Urea Nitrogen 7 mg/dL (7-17); Calcium 9.4 mg/dL (8.4-10.2); Carbon Dioxide 23 mmol/L (22-30); Chloride 107 mmol/L (98-107); Glucose 78 mg/dL (74-99); Potassium 3.9 mmol/L (3.5-5.1); Sodium 139 mmol/L (137-145); Total Bilirubin 0.3 mg/dL (0.2-1.3); Total Protein 6.6 g/dL (6.3-8.2)
[2019-04-23 19:20] LABS: Appearance,Urine Cloudy (Clear); Bilirubin,Urine Negative (Negative); Blood,Urine Negative (Negative); Color,Urine Yellow; Glucose,Urine (UA) Negative (Negative); Ketones,Urine Negative (Negative); Leukocyte Esterase,Urine Large (Negative); Mucus,Urine Occasional /hpf; Nitrite,Urine Negative (Negative); PH, Urine 6.5 (5.0-8.0); Protein,Urine Trace (Negative); RBC,Urine 19 /hpf (0-5); Specific Gravity,Urine 1.024 (1.001-1.035); Squamous Epithelial Cell,Urine 2 /hpf (0-4); WBC,Urine 124 /hpf (0-5)
--- NOTE | 2019-04-23 19:29 | US ---
EXAMINATION TYPE: Transabdominal DATE OF EXAM: 04/23/2019 7:22 PM COMPARISON: NONE CLINICAL HISTORY: Pain, x 2 hours, no confirmed IUP. Pain x couple hours. Smoker. . EXAM PERFORMED: Transabdominal (TA) EXAM MEASUREMENTS: GESTATIONAL AGE / DATING Physician Established: Not yet established Dates by LMP: (9 weeks/6 days) EDC: 11/20/2019 Dates by First Scan: This is first scan (9 weeks/4 days) EDC: 11/22/2019 Dates by Current Scan for: (9 weeks/4 days) EDC: 11/22/2019 MATERNAL ANATOMY Uterus: 12.3 x 9.4 x 9.0 cm Right Ovary: 3.1 x 1.8 x 1.6 cm Left Ovary: 3.6 x 2.4 x 2.1 cm. Area of mixed echogenicity and peripheral vascularity seen left ovary measurin.5 x 2.3 x 1.6 cm. Post CDS / Adnexa: appears wnl Presence of free fluid: none seen Presence of corpus luteal cyst: Area of mixed echogenicity and peripheral vascularity seen left ovary measurin.5 x 2.3 x 1.6 cm. Presence of subchorionic bleed: none seen GESTATION / SURVEY CRL: 2.77 (9 weeks/4 days) Yolk Sac (normal less than 6mm): 0.35 cm. Heart Rate: 172 bpm. Rhythm: ?Upper limits of normal vs increased heart rate. IUP: Viable IUP Date of LMP: 02/13/2019 Beta HcG (if available): N/A IMPRESSION: The ultrasound gestational age is 19 weeks and 4 days. No complicating process.
[2019-04-23] MEDS ORDERED: cefTRIAXone IN SWFI 1,000 MG/10 ML SYRINGE IVP STA (21:26)
[2019-04-23] MEDS ORDERED: metroNIDAZOLE 500 MG TAB PO STA (21:26)
[2019-04-23 21:39] VITALS: BP 109/67; PULSE 72; RESP 16
== END 2019-04-23 21:39 | disposition home or self-care (01) ==
LOC: EC 17:31
DX: O98.311 Other infections with a predominantly sexual mode of transmission complicating pregnancy, first trimester (principal); A59.9 Trichomoniasis, unspecified; O99.331 Smoking (tobacco) complicating pregnancy, first trimester; F17.200 Nicotine dependence, unspecified, uncomplicated; Z3A.09 9 weeks gestation of pregnancy; Z53.8 Procedure and treatment not carried out for other reasons
CPT/HCPCS: 36415; 76801; 80053; 81001; 82150; 83690; 84702; 85025; 86900; 86901; 87086; 87491; 87591; 87808; 96360; 99284

== ENCOUNTER 2019-09-23 07:36 | Outpatient (CLI) | payer OTHER ==
[2019-09-23 08:37] LABS: Amorphous Sediment,Urine Rare /hpf; Appearance,Urine Cloudy (Clear); Bacteria,Urine Rare /hpf; Bilirubin,Urine Negative (Negative); Blood,Urine Negative (Negative); Color,Urine Yellow; Glucose,Urine (UA) Negative (Negative); Ketones,Urine Negative (Negative); Leukocyte Esterase,Urine Negative (Negative); Mucus,Urine Rare /hpf; Nitrite,Urine Negative (Negative); Protein,Urine Negative (Negative); RBC,Urine 1 /hpf (0-5); Specific Gravity,Urine 1.014 (1.001-1.035); Squamous Epithelial Cell,Urine 1 /hpf (0-4); Urobilinogen,Urine <2.0 mg/dL (<2.0); WBC,Urine 3 /hpf (0-5)
[2019-09-23 08:56] VITALS: BP 114/85; PULSE 86; RESP 16; TEMP 97
--- NOTE | 2019-09-23 11:50 | P.MSEPDOC ---
Presenting Problems - Arrival Data Date of Arrival on Unit: 09/23/19 Time of Arrival on Unit: 07:36 Mode of Transport: Ambulatory - Complaint OB-Reason for Admission/Chief Complaint: Pain Medical History - Information : 2 Para: 1 Term: 1 : 0 Abortions: Spontaneous or Elective: 0 Number of Living Children: 1 - Gestational Age Gestational Age by LISANDRA (wks/days): 31 Weeks and 4 Days - History Complications: Smoker Review of Systems - Review of Systems Constitutional: No problems Breast: No problems ENT: No problems Cardiovascular: No problems Respiratory: No problems Gastrointestinal: No problems Genitourinary: No problems Musculoskeletal: No problems Neurological: No problems Skin: No problems Vital Signs - Temperature Temperature: 97.0 F Temperature Source: Temporal Artery Scan - Pulse Right Brachial Pulse Rate: 86 Pulse Assessment Method: Automatic Cuff - Respirations Respiratory Rate: 16 Oxygen Delivery Method: Room Air - Blood Pressure Right Arm Blood Pressure: 114/85 Blood Pressure Mean: 94 Blood Pressure Source: Automatic Cuff Medical Screen Scoring (Pre) - Cervical Exam Dilation: 0 cm = 0 - Uterine Contractions Frequency: N/A Duration: N/A Intensity: N/A - Maternal Vital Signs Maternal Temperature: N/A Maternal Blood Pressure: N/A Signs of Preeclampsia: N/A Maternal Respirations: N/A - Maternal Trauma Maternal Trauma: N/A - Assessment - Baby A Baseline FHR: 125 Heart Rate - NICHD Category: Category I (Normal) = 0 NST: Reactive Position: N/A Station: N/A - Total Score - Baby A Total Score - Baby A: 0 - Total Score - Baby B Total Score - Baby B: 0 - Total Score - Baby C Total Score - Baby C: 0 - Level of Risk - Baby A Level of Risk - Baby A: Low (0-5) - Level of Risk - Baby B Level of Risk - Baby B: Low (0-5) - Level of Risk - Baby C Level of Risk - Baby C: Low (0-5) Physician Notification (Pre) - Physician Notified Physician Notified Date: 09/23/19 Physician Notified Time: 08:42 New Order Received: Yes (d/c with note for day off school if requested) Disposition - Disposition OB Disposition: Triage, Discharge to home, Written follow up instructions reviewed Discharge Date: 09/23/19 Discharge Time: 08:45 I agree with the RN Medical Screening Exam: Yes Risk & Benefit of care provided described in d/c instruction: Yes Diagnosis: RELATED CONDITIONS, UNSPECIFIED, THIRD TRIMESTER
== END 2019-09-23 08:45 | disposition home or self-care (01) ==
LOC: FBPOP 07:36
PROVIDERS: ATTEND Obstetrics & Gynecology
DX: O26.93 Pregnancy related conditions, unspecified, third trimester (principal); O99.333 Smoking (tobacco) complicating pregnancy, third trimester; Z3A.31 31 weeks gestation of pregnancy
CPT/HCPCS: 59025; 81001; 99213

== ENCOUNTER 2019-10-22 12:38 | Outpatient (CLI) | payer OTHER ==
[2019-10-22 14:10] VITALS: BP 109/58; PULSE 96; RESP 18; TEMP 97.1
--- NOTE | 2019-10-30 08:43 | P.MSEPDOC ---
Presenting Problems - Arrival Data Date of Arrival on Unit: 10/22/19 Time of Arrival on Unit: 12:18 Mode of Transport: Ambulatory - Complaint OB-Reason for Admission/Chief Complaint: NST Medical History - Information : 2 Para: 1 Term: 1 : 0 Abortions: Spontaneous or Elective: 0 Number of Living Children: 1 - Gestational Age Gestational Age by LISANDRA (wks/days): 35 Weeks and 5 Days - History Complications: Other Comment: polyhydrominos Review of Systems - Review of Systems Constitutional: No problems Breast: No problems ENT: No problems Cardiovascular: No problems Respiratory: No problems Gastrointestinal: No problems Genitourinary: No problems Musculoskeletal: No problems Neurological: No problems Skin: No problems Vital Signs - Temperature Temperature: 97.1 F Temperature Source: Temporal Artery Scan - Pulse Right Brachial Pulse Rate: 96 Pulse Assessment Method: Automatic Cuff - Respirations Respiratory Rate: 18 Oxygen Delivery Method: Room Air O2 Sat by Pulse Oximetry: 100 - Blood Pressure Right Arm Blood Pressure: 109/58 Blood Pressure Mean: 75 Blood Pressure Source: Automatic Cuff Medical Screen Scoring (Pre) - Cervical Exam Dilation: Exam Deferred Effacement: Exam Deferred Membranes: Intact - Uterine Contractions Frequency: > or = 36 weeks =2 - Maternal Vital Signs Maternal Temperature: N/A Maternal Blood Pressure: N/A Signs of Preeclampsia: N/A Maternal Respirations: N/A - Maternal Trauma Maternal Trauma: N/A - Assessment - Baby A Baseline FHR: 140 Heart Rate - NICHD Category: Category I (Normal) = 0 NST: Reactive Position: N/A Station: N/A - Total Score - Baby A Total Score - Baby A: 2 - Total Score - Baby B Total Score - Baby B: 2 - Total Score - Baby C Total Score - Baby C: 2 - Level of Risk - Baby A Level of Risk - Baby A: Low (0-5) - Level of Risk - Baby B Level of Risk - Baby B: Low (0-5) - Level of Risk - Baby C Level of Risk - Baby C: Low (0-5) Physician Notification (Pre) - Physician Notified Physician Notified Date: 10/22/19 Physician Notified Time: 13:30 New Order Received: Yes - Notification Comment Comment: discharge pt home, follow up in office on [place], pt gets nst 2 x week for polyhydrominos Disposition - Disposition OB Disposition: Triage, Discharge to home, Written follow up instructions reviewed Discharge Date: 10/22/19 Discharge Time: 13:56 I agree with the RN Medical Screening Exam: Yes Risk & Benefit of care provided described in d/c instruction: Yes Diagnosis: POLYHYDRAMNIOS, THIRD TRIMESTER, NOT APPLICABLE OR UNSP
== END 2019-10-22 13:56 | disposition home or self-care (01) ==
LOC: FBPOP 12:38
PROVIDERS: ATTEND Obstetrics & Gynecology
DX: O40.3XX0 Polyhydramnios, third trimester, not applicable or unspecified (principal); Z3A.35 35 weeks gestation of pregnancy
CPT/HCPCS: 59025; G0463; 99213

== ENCOUNTER 2019-10-28 11:08 | Outpatient (CLI) | payer OTHER ==
[2019-10-28 12:02] LABS: Amorphous Sediment,Urine Rare /hpf; Appearance,Urine Cloudy (Clear); Bilirubin,Urine Negative (Negative); Blood,Urine Negative (Negative); Color,Urine Yellow; Glucose,Urine (UA) Negative (Negative); Ketones,Urine Negative (Negative); Leukocyte Esterase,Urine Negative (Negative); Mucus,Urine Rare /hpf; Nitrite,Urine Negative (Negative); Protein,Urine Negative (Negative); Specific Gravity,Urine 1.014 (1.001-1.035); Squamous Epithelial Cell,Urine 1 /hpf (0-4); Urobilinogen,Urine <2.0 mg/dL (<2.0); WBC,Urine 2 /hpf (0-5)
[2019-10-28 12:57] VITALS: BP 107/67; PULSE 76; RESP 16; TEMP 98.1
--- NOTE | 2019-10-30 08:42 | P.MSEPDOC ---
Presenting Problems - Arrival Data Date of Arrival on Unit: 10/28/19 Time of Arrival on Unit: 11:10 Mode of Transport: Wheelchair - Complaint OB-Reason for Admission/Chief Complaint: Other Comment: pt arrived via w/c from the ER c/o questionable labor and lower abd discomfort and back discomfort pt denies any leaking of fluid or bleeding Medical History - Information : 2 Para: 1 Term: 1 : 0 Abortions: Spontaneous or Elective: 0 Number of Living Children: 1 - Gestational Age Gestational Age by LISANDRA (wks/days): 36 Weeks and 4 Days Review of Systems - Review of Systems Constitutional: No problems Breast: No problems ENT: No problems Cardiovascular: No problems Respiratory: No problems Gastrointestinal: No problems Genitourinary: No problems Musculoskeletal: No problems Neurological: No problems Skin: No problems Vital Signs - Temperature Temperature: 98.1 F Temperature Source: Oral - Pulse Right Brachial Pulse Rate: 76 Pulse Assessment Method: Automatic Cuff - Respirations Respiratory Rate: 16 Oxygen Delivery Method: Room Air O2 Sat by Pulse Oximetry: 97 - Blood Pressure Right Arm Blood Pressure: 107/67 Blood Pressure Mean: 80 Blood Pressure Source: Automatic Cuff Medical Screen Scoring (Pre) - Cervical Exam Dilation: 1-3 cm = 1 Effacement: Exam Deferred Membranes: Intact - Uterine Contractions Frequency: N/A Duration: N/A Intensity: N/A - Maternal Vital Signs Maternal Temperature: N/A Maternal Blood Pressure: N/A Signs of Preeclampsia: N/A Maternal Respirations: N/A - Maternal Trauma Maternal Trauma: N/A - Assessment - Baby A Baseline FHR: 150 Heart Rate - NICHD Category: Category I (Normal) = 0 NST: Reactive Position: N/A Station: N/A - Total Score - Baby A Total Score - Baby A: 1 - Total Score - Baby B Total Score - Baby B: 1 - Total Score - Baby C Total Score - Baby C: 1 - Level of Risk - Baby A Level of Risk - Baby A: Low (0-5) - Level of Risk - Baby B Level of Risk - Baby B: Low (0-5) - Level of Risk - Baby C Level of Risk - Baby C: Low (0-5) Physician Notification (Pre) - Physician Notified Physician Notified Date: 10/28/19 Physician Notified Time: 12:30 - Notification Comment Comment: cervix rechecked with no change reactive nst u/a lab wnl. may discharge to home undeivered with instructions Disposition - Disposition OB Disposition: Discharge to home Discharge Date: 10/28/19 Discharge Time: 12:33 I agree with the RN Medical Screening Exam: Yes Risk & Benefit of care provided described in d/c instruction: Yes Diagnosis: FALSE LABOR BEFORE 37 COMPLETED WEEKS OF GEST, THIRD TRI
== END 2019-10-28 12:33 | disposition home or self-care (01) ==
LOC: FBPOP 11:08
PROVIDERS: ATTEND Obstetrics & Gynecology
DX: O47.03 False labor before 37 completed weeks of gestation, third trimester (principal); Z3A.36 36 weeks gestation of pregnancy
CPT/HCPCS: 59025; 81001; G0463; 99213

== ENCOUNTER 2019-11-04 07:34 | Outpatient (CLI) | payer OTHER ==
[2019-11-04 10:01] VITALS: BP 110/67; PULSE 78; RESP 18; TEMP 97.6
--- NOTE | 2019-11-04 21:38 | P.MSEPDOC ---
Presenting Problems - Arrival Data Date of Arrival on Unit: 11/04/19 Time of Arrival on Unit: 07:50 Mode of Transport: Ambulatory - Complaint OB-Reason for Admission/Chief Complaint: Possible Onset of Labor Medical History - Information : 2 Para: 1 Term: 1 : 0 Abortions: Spontaneous or Elective: 0 Number of Living Children: 1 - Gestational Age Gestational Age by LISANDRA (wks/days): 37 Weeks and 4 Days - History Complications: Smoker Review of Systems - Review of Systems Constitutional: No problems Breast: No problems ENT: No problems Cardiovascular: No problems Respiratory: No problems Gastrointestinal: No problems Genitourinary: No problems Musculoskeletal: No problems Neurological: No problems Skin: No problems Vital Signs - Temperature Temperature: 97.6 F Temperature Source: Temporal Artery Scan - Pulse Right Brachial Pulse Rate: 78 Pulse Assessment Method: Automatic Cuff - Respirations Respiratory Rate: 18 Oxygen Delivery Method: Room Air O2 Sat by Pulse Oximetry: 99 - Blood Pressure Right Arm Blood Pressure: 110/67 Blood Pressure Mean: 81 Blood Pressure Source: Automatic Cuff Medical Screen Scoring (Pre) - Cervical Exam Dilation: 1-3 cm = 1 Membranes: Intact - Uterine Contractions Frequency: > 5 minutes apart = 1 Duration: > 40 seconds = 2 Intensity: N/A - Maternal Vital Signs Maternal Temperature: N/A Maternal Blood Pressure: N/A Signs of Preeclampsia: N/A Maternal Respirations: N/A - Maternal Trauma Maternal Trauma: N/A - Assessment - Baby A Baseline FHR: 135 Heart Rate - NICHD Category: Category I (Normal) = 0 NST: Reactive Position: N/A Station: N/A - Total Score - Baby A Total Score - Baby A: 4 - Total Score - Baby B Total Score - Baby B: 4 - Total Score - Baby C Total Score - Baby C: 4 - Level of Risk - Baby A Level of Risk - Baby A: Low (0-5) - Level of Risk - Baby B Level of Risk - Baby B: Low (0-5) - Level of Risk - Baby C Level of Risk - Baby C: Low (0-5) Physician Notification (Pre) - Physician Notified Physician Notified Date: 11/04/19 Physician Notified Time: 08:45 New Order Received: Yes - Notification Comment Comment: Dr Mott states that patient can go home if cervix is unchanged and contractions do not become more frequent Disposition - Disposition OB Disposition: Discharge to home Transferred to:: Home Discharge Date: 11/04/19 Discharge Time: 09:30 I agree with the RN Medical Screening Exam: Yes Risk & Benefit of care provided described in d/c instruction: Yes Diagnosis: FALSE LABOR AT OR AFTER 37 COMPLETED WEEKS OF GESTATION
== END 2019-11-04 09:30 | disposition home or self-care (01) ==
LOC: FBPOP 07:34
PROVIDERS: ATTEND Obstetrics & Gynecology
DX: O47.1 False labor at or after 37 completed weeks of gestation (principal); Z3A.37 37 weeks gestation of pregnancy
CPT/HCPCS: 59025; G0463; 99213

== ENCOUNTER 2019-11-18 06:00 | Inpatient (IN) | payer OTHER ==
--- NOTE | 2019-11-17 20:15 | P.HPOB ---
History of Present Illness H&P Date: 11/17/19 Chief Complaint: Induction of labor This is a 34 y.o. female, gravid 2, para 1, with an estimated date of confinement of 11/21/2019, estimated gestational age of 39-4/7 weeks, who presents for induction of labor due to polyhydramnios. She was diagnoses with polyhydramnios at about 35 weeks and has been doing twice weekly NSTs and weekly fluid levels. She has good movement and has been feeling frequent contractions. labs: Pap-WNL, +HR HPV, Types 16&18-neg GC/Chlamydia/trichomonas-neg Blood type-O+ Antibody screen-neg Rubella-immune HIV-NR Glucose-74 RPR-NR Hepatitis B surface antigen-neg 1 hr. GTT-95 GBS-neg, but +urine culture earlier in OB Hx: . 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 ago. Social Hx: Single. 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 Review of Systems Constitutional: Denies chills, Denies fever Eyes: denies blurred vision, denies pain Ears, nose, mouth and throat: Denies headache, Denies sore throat Cardiovascular: Denies chest pain, Denies shortness of breath Gastrointestinal: Reports abdominal pain (irreg. ctxs), Denies diarrhea, Denies nausea, Denies vomiting Genitourinary: Reports pelvic pain, Reports Musculoskeletal: Reports low back pain Integumentary: Denies pruritus, Denies rash Neurological: Denies numbness, Denies weakness Psychiatric: Denies anxiety, Denies depression Past Medical History Past Medical History: No Reported History History of Any Multi-Drug Resistant Organisms: None Reported Past Surgical History: No Surgical Hx Reported Past Anesthesia/Blood Transfusion Reactions: No Reported Reaction Past Psychological History: No Psychological Hx Reported Smoking Status: Current every day smoker Past Alcohol Use History: None Reported Past Drug Use History: Marijuana (prior to ) - Past Family History Father Family Medical History: CVA/TIA Medications and Allergies Home Medications Medication Instructions Recorded Confirmed Type Pnv,Calcium 72/Iron/Folic Acid 1 each PO DAILY 09/23/19 10/28/19 History [ Plus Tablet] Allergies Allergy/AdvReac Type Severity Reaction Status Date / Time No Known Allergies Allergy Verified 10/28/19 11:27 Exam Osteopathic Statement: *. No significant issues noted on an osteopathic structural exam other than those noted in the History and Physical/Consult. HEENT: within normal limits Heart: regular rate and rhythm Lungs: clear to auscultation bilaterally Abdomen: , non-tender heart tones: 140's by doppler Extremities: neg. Katlyn's Cervix: 2 cm/70%/-2 Assessment and Plan (1) 39 weeks gestation of Status: Acute Code(s): Z3A.39 - 39 WEEKS GESTATION OF SNOMED Code(s): 37794261 (2) Polyhydramnios affecting in third trimester Status: Acute Code(s): O40.3XX0 - POLYHYDRAMNIOS, THIRD TRIMESTER, NOT REMA LICABLE OR UNSP SNOMED Code(s): 128976501 (3) Group B Streptococcus carrier state affecting Status: Acute Code(s): O99.820 - STREPTOCOCCUS B CARRIER STATE COMPLICATING SNOMED Code(s): 428426062 Plan: Admission for induction of labor. Antibiotic prophylaxis for group B streptococcus. Expectant management.
[2019-11-18] MEDS ORDERED: TERBUTALINE 1 MG/ML VIAL SQ PRN (06:16)
[2019-11-18] MEDS ORDERED: OXYTOCIN 10 UNIT/ML 1 ML VIAL IM PRN (06:16)
[2019-11-18] MEDS ORDERED: OXYTOCIN 30 UNITS/500 ML NS 30 UNIT in SALINE 1 500ML.BAG IV SCH (06:16)
[2019-11-18] MEDS ORDERED: METHYLERGONOVINE 0.2 MG/ML 1 ML AMP IM PRN (06:16)
[2019-11-18] MEDS ORDERED: LIDOCAINE 0.5% (PF) 5 MG/ML (50 ML SDV) SQ PRN (06:16)
[2019-11-18] MEDS ORDERED: LIDOCAINE 1% (10MG/ML) FOR IV START INTRADERMA PRN (06:16)
[2019-11-18] MEDS ORDERED: CARBOPROST TROMETHAMINE 250 MCG/ML 1 ML AMP IM PRN (06:16)
[2019-11-18] MEDS: LACTATED RINGERS 1,000 ML IV SCH ×3 (06:29→12:46)
[2019-11-18] MEDS ORDERED: AMPICILLIN 2,000 MG in SODIUM CHLORIDE 0.9% 100 ML IVPB ONE (06:30)
[2019-11-18] MEDS ORDERED: PRENATAL VIT-IRON-FOLIC ACID 1 EACH CAP PO SCH (09:00)
[2019-11-18] MEDS ORDERED: fentaNYL (PF) 50 MCG/ML 5 ML AMP ONE (09:17)
[2019-11-18] MEDS ORDERED: ROPIVACAINE 5MG/ML 20ML VIAL ONE (09:17)
[2019-11-18] MEDS ORDERED: SODIUM CHLORIDE 0.9% 100 ML BAG ONE (09:17)
[2019-11-18 10:11] LABS: HCT 40.9 % (34.0-46.0); HGB 13.9 gm/dL (11.4-16.0); MCH 32.5 pg (25.0-35.0); MCV 95.7 fL (80.0-100.0); Mean Platelet Volume 9.8; Platelet Count 167 k/uL (150-450); RBC 4.27 m/uL (3.80-5.40); RDW 12.5 % (11.5-15.5); WBC 14.5 k/uL (3.8-10.6)
[2019-11-18] MEDS ORDERED: AMPICILLIN 1,000 MG in SODIUM CHLORIDE 0.9% 50 ML IVPB SCH (10:30)
[2019-11-18] MEDS ORDERED: ROPIVACAINE 100 MG, fentaNYL (PF) 200 MCG in SODIUM CHLORIDE 0.9% 76 ML EPIDURAL ONE (11:00)
[2019-11-18] MEDS ORDERED: diphenhydrAMINE 50 MG/ML 1 ML VIAL IVP PRN ×2 (15:16)
[2019-11-18] MEDS ORDERED: BENZOCAINE/MENTHOL SPRAY 1 GM/SPRAY AEROSOL TOPICAL PRN (15:16)
[2019-11-18] MEDS ORDERED: diphenhydrAMINE 25 MG CAP PO PRN (15:16)
[2019-11-18] MEDS ORDERED: ZOLPIDEM 5 MG TAB PO PRN (15:16)
[2019-11-18] MEDS ORDERED: OXYTOCIN 20 UNITS/1000 ML NS 1,000 ML IV SCH (15:16)
[2019-11-18] MEDS ORDERED: HYDROCORTISONE 2.5% RECTAL CREAM 30 GM TUBE RECTAL PRN (15:16)
[2019-11-18] MEDS ORDERED: LANOLIN CREAM 5 GM TUBE TOPICAL PRN (15:16)
[2019-11-18] MEDS ORDERED: WITCH HAZEL 1 EACH MED..PAD TOPICAL PRN (15:16)
[2019-11-18] MEDS ORDERED: SIMETHICONE 80 MG CHEWABLE PO PRN (15:16)
[2019-11-18] MEDS ORDERED: diphenhydrAMINE 50 MG CAP PO PRN (15:16)
[2019-11-18] MEDS: IBUPROFEN 600 MG TAB PO PRN ×2 (15:47→23:20)
--- NOTE | 2019-11-18 18:21 | P.PROBDLV ---
Vaginal Delivery Note - . Vaginal Delivery Note: The patient progressed to complete dilation after oxytocin induction of labor and artificial rupture of membranes with clear fluid noted. She did receive epidural anesthesia. She reached complete dilation at approximately 1357 and began pushing. 's head came to a crown. With one further push, the 's head delivered across the perineum and a right occiput anterior lie at 1440. Most immediately after delivery of the head, a turtle sign was noted. Staff was alerted about the possibility of a shoulder dystocia. Gentle traction was applied and the patient did attempt to push with legs in Sivan position. When the shoulder did not release the patient was instructed to stop pushing and a nurse was position to provide suprapubic pressure. Superpubic pressure was applied and the shoulder did not release. I placed a gloved hand to palpate the shoulder and the head did restitute back to a left occiput anterior lie. At this point the gloved hand was placed along the posterior portion of the anterior shoulder and this was turned in a counterclockwise fashion along with suprapubic pressure applied by the nurse. The patient was also encouraged to push after the shoulder started to release. This did release the shoulder and the baby did deliver and was placed on mother's abdomen at 1442. Cord was clamped and cut and the infant was immediately taken to warmer for evaluation. The entire shoulder dystocia lasted approximately 2 minutes. A viable male was noted with scores of 7 at 1 minute and 9 at 5 minutes and weight of 8 lbs. 0 oz. Both clavicles were palpated and appeared intact. is moving both arms equally. There is bruising noted on the 's face and head. Placenta delivered shortly thereafter, intact, with a three- vessel cord. Uterus did contract well after oxytocin was given and uterine massage was carried out. Inspection of the perineum revealed no perineal lacerations. Estimated blood loss is approximately 150 mL. Mother and are in stable condition. will also be evaluated by pediatrics. Patient was briefed on the shoulder dystocia and what maneuvers were used to release the baby shoulder. She was also advised that she should have a section in any future due to the risk of shoulder dystocia happening again.
[2019-11-18] MEDS: SENNOSIDES-DOCUSATE SODIUM 1 EACH TAB PO SCH (19:32)
[2019-11-18] MEDS: ACETAMINOPHEN TAB 325 MG TAB PO PRN (20:02)
[2019-11-19] MEDS: ACETAMINOPHEN TAB 325 MG TAB PO PRN ×2 (04:28→10:55)
[2019-11-19 04:34] VITALS: RESP 16
[2019-11-19] MEDS: IBUPROFEN 600 MG TAB PO PRN (07:35)
[2019-11-19 07:51] LABS: Basophils % (A) 0 %; Eosinophils # (A) 0.1 k/uL (0-0.7); Eosinophils % (A) 0 %; HCT 38.5 % (34.0-46.0); HGB 12.8 gm/dL (11.4-16.0); Lymphocytes # (A) 1.5 k/uL (1.0-4.8); Lymphocytes % (A) 9 %; MCH 31.7 pg (25.0-35.0); MCHC 33.3 g/dL (31.0-37.0); MCV 95.1 fL (80.0-100.0); Mean Platelet Volume 10.6; Monocytes # (A) 0.8 k/uL (0-1.0); Monocytes % (A) 5 %; Neutrophils # (A) 13.4 k/uL (1.3-7.7); Neutrophils % (A) 83 %; Platelet Count 169 k/uL (150-450); RBC 4.05 m/uL (3.80-5.40); RDW 12.4 % (11.5-15.5); WBC 16.1 k/uL (3.8-10.6)
[2019-11-19] MEDS: SENNOSIDES-DOCUSATE SODIUM 1 EACH TAB PO SCH (08:25)
--- NOTE | 2019-11-19 08:32 | P.DS ---
Providers Date of admission: 11/18/19 06:08 Expected date of discharge: 11/19/19 Attending physician: Vivian Mott Primary care physician: Stated None - Discharge Diagnosis(es) (1) 39 weeks gestation of Current Visit: No Status: Acute (2) Polyhydramnios affecting in third trimester Current Visit: No Status: Acute (3) Group B Streptococcus carrier state affecting Current Visit: No Status: Acute Hospital Course: This is a 34-year-old female 2 para 1 at 39-4/7 weeks who presented for induction of labor. She underwent oxytocin induction of labor and delivered vaginally a viable male on 11/18/19992019 with scores of 7 at 1 minute and 9 at 5 minutes and weight of 8 pounds. Delivery was cut located by a 2 minute shoulder dystocia. Patient has been feeling well today. She is sore but is comfortable with ibuprofen. Baby is feeding well with bottle feeding. Lochia is decreasing. Vital signs are stable. Abdomen is soft with fundus firm and nontender. Extremities show negative Homans. Impression is status post vaginal delivery complicated by shoulder dystocia day #1. Plan is to discharge home today. Routine instructions are given. She is advised follow-up in the office in 6 weeks for a check. She is advised to call the office if she has any further questions or concerns prior to her appointment time. She will be given a prescription for ibuprofen. She is also again counseled that in the future she should have a section rather than trying to labor due to the shoulder dystocia. Procedures: Oxytocin induction of labor Spontaneous vaginal delivery of a viable male infant on 11/18/2019 Patient Condition at Discharge: Stable Plan - Discharge Summary New Discharge Prescriptions: No Action Pnv,Calcium 72/Iron/Folic Acid [ Plus Tablet] 1 each PO DAILY Discharge Medication List Pnv,Calcium 72/Iron/Folic Acid [ Plus Tablet] 1 each PO DAILY 09/23/19 [History]
[2019-11-19 12:06] VITALS: BP 98/58; PULSE 68; TEMP 98.1
== END 2019-11-19 15:15 | disposition home or self-care (01) | DRG 807 ==
LOC: 4FBP 06:08
PROVIDERS: ADMIT Obstetrics & Gynecology; ATTEND Obstetrics & Gynecology
PROC: 3E033VJ Introduction of Other Hormone into Peripheral Vein, Percutaneous Approach (ICD-10-PCS; principal; 2019-11-18)
PROC: 10E0XZZ Delivery of Products of Conception, External Approach (ICD-10-PCS; principal; 2019-11-18)
DX: O40.3XX0 Polyhydramnios, third trimester, not applicable or unspecified (principal); Z37.0 Single live birth; O66.0 Obstructed labor due to shoulder dystocia; O99.334 Smoking (tobacco) complicating childbirth; O99.824 Streptococcus B carrier state complicating childbirth; F17.200 Nicotine dependence, unspecified, uncomplicated; Z3A.39 39 weeks gestation of pregnancy
CPT/HCPCS: 85025; 85027; 86850; 86900; 86901; 88307

== ENCOUNTER → 2020-09-27 | Outpatient (CLI) | payer OTHER ==
--- NOTE | 2020-09-27 16:13 | US ---
EXAMINATION TYPE: US pelvic complete DATE OF EXAM: 09/27/2020 COMPARISON: NONE CLINICAL HISTORY: 34-year-old female R10.32 Left lower quadrant pain. Left pelvic pain x couple weeks , patient on control, 2, para 2 TECHNIQUE: Transabdominal sonographic images of the pelvis were acquired. Date of LMP: 2019 FINDINGS: EXAM MEASUREMENTS: Uterus: 8.2 x 3.8 x 4.5 cm Endometrial Stripe: 0.5 cm Right Ovary: 3.6 x 2.2 x 2.3 cm Left Ovary: 2.5 x 1.5 x 2.0 cm 1. Uterus: anteverted 2. Endometrium: wnl 3. Right Ovary: 1.8cm cystic area 4. Left Ovary: wnl 5. Bilateral Adnexa: wnl 6. Posterior cul-de-sac: wnl IMPRESSION: A 1.8 cm dominant follicle or functional cyst in the right ovary. Otherwise, no specific abnormality seen.
== END | disposition home or self-care (01) ==
LOC: RADUSWWP 12:03
PROVIDERS: ATTEND Family Medicine
DX: R10.32 Left lower quadrant pain (principal)
CPT/HCPCS: 76856

== ENCOUNTER → 2020-12-05 | Outpatient (CLI) | payer OTHER ==
[2020-12-05 10:43] LABS: Basophils # (A) 0.1 k/uL (0-0.2); Basophils % (A) 1 %; Eosinophils % (A) 1 %; HCT 45.2 % (34.0-46.0); HGB 14.9 gm/dL (11.4-16.0); Lymphocytes # (A) 1.5 k/uL (1.0-4.8); Lymphocytes % (A) 18 %; MCH 29.8 pg (25.0-35.0); MCV 90.3 fL (80.0-100.0); Mean Platelet Volume 7.8; Monocytes # (A) 0.4 k/uL (0-1.0); Monocytes % (A) 4 %; Neutrophils # (A) 6.3 k/uL (1.3-7.7); Neutrophils % (A) 75 %; Platelet Count 269 k/uL (150-450); RBC 5.01 m/uL (3.80-5.40); RDW 12.4 % (11.5-15.5); WBC 8.5 k/uL (3.8-10.6)
== END | disposition home or self-care (01) ==
LOC: LABWHC1 09:11
PROVIDERS: ATTEND Orthopaedic Surgery
DX: M67.432 Ganglion, left wrist (principal)
CPT/HCPCS: 36415; 85025

== ENCOUNTER → 2020-12-08 | Day surgery (SDC) | payer OTHER ==
[2020-12-06 11:24] VITALS: BMI 21.2
--- NOTE | 2020-12-07 16:24 | HP ---
HISTORY AND PHYSICAL DATE OF SURGERY: 12/08/2020 Nyasia Croft is a 35-year-old patient seen with a symptomatic soft tissue mass, left wrist, consistent with ganglion cyst. We discussed options for treatment. She elected to proceed with surgical excision. Consent was obtained. PAST MEDICAL HISTORY: Irritable bowel syndrome. PAST SURGICAL HISTORY: Colonoscopy. DAILY MEDICATIONS: Imodium, omeprazole, paroxetine, Zofran. ALLERGIES: NONE. SOCIAL HISTORY: She denies tobacco use. PHYSICAL EVALUATION OF THE LEFT WRIST: There is a 1.5 x 1.5 soft tissue mass raised approximately 1 cm along the area of the left wrist. It is minimally tender to palpation. There is no evidence or any infective process. Her distal neurovascular exam is intact. There is a good radial pulse present. RADIOGRAPHS: Radiographs of the left wrist revealed no osseous abnormality. IMPRESSION: Symptomatic left wrist ganglion cyst. PLAN: Excision of ganglion cyst, left wrist. MMODL / IJN: [id number] /
[~2020-12-08] MED LIST: DEXAMETHASONE SOD PHOSPHATE 4 MG/ML 1 ML VIAL IV ONE; HYDROmorphone 0.5 MG/0.5 ML SYRINGE IVP PRN; LACTATED RINGERS 1,000 ML IV SCH; LIDOCAINE 1% (10MG/ML) FOR IV START INTRADERMA PRN; MIDAZOLAM 2 MG/2 ML VIAL IV PRN; ONDANSETRON 4 MG/2 ML VIAL IVP ONE
[2020-12-08 14:27] VITALS: BP 101/54; PULSE 60; RESP 16; TEMP 98.6
== END | disposition home or self-care (01) ==
LOC: OR 14:09
PROVIDERS: ATTEND Orthopaedic Surgery
DX: M67.432 Ganglion, left wrist (principal); Z53.8 Procedure and treatment not carried out for other reasons; K58.9 Irritable bowel syndrome, unspecified; Z79.899 Other long term (current) drug therapy; Z98.890 Other specified postprocedural states
CPT/HCPCS: J1100; J2405

== ENCOUNTER 2023-04-22 06:19 | Day surgery (SDC) | payer OTHER ==
--- NOTE | 2023-04-21 17:23 | P.HPOB ---
History of Present Illness H&P Date: 04/21/23 Chief Complaint: Family planning This is a 37 y.o. female, 2, para 2, who presents for laparoscopic bilateral tubal ligation via fulgaration and removal of Nexplanon implant for permanent sterilization. Her Nexplanon is due to come out and she no longer wants hormonal control. OB Hx: . History of 2 vaginal deliveries. 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 Social Hx: Single. Not currently sexually active. Review of Systems Constitutional: Reports night sweats (occ), Denies chills, Denies fever Eyes: denies blurred vision, denies pain Ears, nose, mouth and throat: Denies headache, Denies sore throat Cardiovascular: Denies chest pain, Denies shortness of breath Respiratory: Denies cough Gastrointestinal: Denies abdominal pain, Denies diarrhea, Denies nausea, Denies vomiting Genitourinary: Denies dysuria, Denies hematuria Menstruation: Reports cycle > 35 days, Reports cycle variable, Reports period light Musculoskeletal: Reports low back pain Integumentary: Denies pruritus, Denies rash Neurological: Denies numbness, Denies weakness Psychiatric: Reports anxiety Past Medical History Additional Past Medical History / Comment(s): 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, IBS History of Any Multi-Drug Resistant Organisms: None Reported Additional Past Surgical History / Comment(s): ganglion cyst lft wrist Past Anesthesia/Blood Transfusion Reactions: No Reported Reaction Past Psychological History: Anxiety Smoking Status: Former smoker Past Alcohol Use History: Occasional Past Drug Use History: Marijuana - Past Family History Father Family Medical History: CVA/TIA Medications and Allergies Home Medications Medication Instructions Recorded Confirmed Type Dicyclomine [Bentyl] 10 mg PO TID PRN 12/06/20 04/22/23 History Etonogestrel [Nexplanon] 1 implant SQ [id number] 12/06/20 04/22/23 History Loperamide [Imodium] 2 mg PO QID PRN 12/06/20 04/22/23 History Omeprazole [PriLOSEC] 20 mg PO [id number]-[id number] PRN 12/06/20 04/22/23 History Ondansetron [Zofran] 4 mg PO Q8HR PRN 03/23/21 08/07/23 History Desvenlafaxine Succinate [Pristiq] 25 mg PO DAILY 04/22/23 04/22/23 History Allergies Allergy/AdvReac Type Severity Reaction Status Date / Time No Known Allergies Allergy Verified 04/15/23 08:51 Exam Osteopathic Statement: *. No significant issues noted on an osteopathic structural exam other than those noted in the History and Physical/Consult. HEENT: within normal limits Heart: regular rate and rhythm Lungs: clear to auscultation bilaterally Abdomen: soft, non-tender Pelvic: uterus small, anteverted, non-tender, no adnexal masses or tenderness Extremities: neg. Katlyn's Assessment and Plan (1) Family planning Current Visit: No Status: Acute Code(s): Z30.09 - ENCOUNTER FOR OTH GENERAL CNSL AND ADVICE ON CONTRACEPTION SNOMED Code(s): 845127018 Plan: Proceed with laparoscopic bilateral tubal ligation via fulgaration and removal of Nexplanon implant. I have discussed the risks, benefits, and alternative therapies for the above- mentioned procedure and for both sedation/anesthesia as well as necessary blood products administration, if indicated, as they pertain to this patient. The patient has indicated her understanding and acceptance of the risks and procedures discussed.
[~2023-04-22 06:19] MED LIST changes: -HYDROmorphone 0.5 MG/0.5 ML SYRINGE IVP PRN; -LIDOCAINE 1% (10MG/ML) FOR IV START INTRADERMA PRN; +Pre Op ABX Message 1 EACH MISC MISCELLANE ONE; +SCOPOLAMINE 1 MG/72 HR PATCH TRANSDERM ONE
[2023-04-22] MEDS ORDERED: HYDROmorphone 0.5 MG/0.5 ML SYRINGE IVP PRN (07:00)
[2023-04-22] MEDS ORDERED: fentaNYL (PF) 50 MCG/ML 2 ML AMP ONE (07:25)
[2023-04-22] MEDS ORDERED: GLYCOPYRROLATE 0.2 MG/ML 2 ML VIAL ONE (07:25)
[2023-04-22] MEDS ORDERED: ROCURONIUM 10 MG/ML (5 ML VIAL) IV ONE (07:25)
[2023-04-22] MEDS ORDERED: LIDOCAINE 2% INJ 20 MG/ML (2 ML VIAL) ONE (07:25)
[2023-04-22] MEDS ORDERED: NEOSTIGMINE 1 MG/ML 10 ML VIAL ONE (07:25)
[2023-04-22] MEDS ORDERED: HYDROmorphone (PF) 1 MG/ML ONE (07:25)
[2023-04-22] MEDS ORDERED: PHENYLEPHRINE-0.9% NACL SYG 1,000 MCG/10 ML SYRINGE ONE (07:25)
[2023-04-22] MEDS ORDERED: KETAMINE 10 MG/ML 20 ML VIAL ONE (07:25)
[2023-04-22] MEDS ORDERED: PROPOFOL 10 MG/ML 20 ML VIAL IV ONE (07:25)
[2023-04-22] MEDS ORDERED: KETOROLAC 15 MG/ML 1 ML VIAL ONE (07:25)
[2023-04-22] MEDS ORDERED: MIDAZOLAM 2 MG/2 ML VIAL ONE (07:25)
[2023-04-22] MEDS ORDERED: SUCCINYLCHOLINE CHLORIDE 200 MG/10 ML VIAL IV ONE (07:25)
[2023-04-22] MEDS ORDERED: BUPIVACAINE (PF) 0.25% 30 ML VIAL SQ ONE ×3 (07:53→08:00)
[2023-04-22] MEDS ORDERED: LACTATED RINGERS 1,000 ML IV ONE ×3 (08:02)
--- NOTE | 2023-04-22 08:12 | P.OP ---
Date of Procedure: 04/22/23 Preoperative Diagnosis: Family planning Postoperative Diagnosis: Same Procedure(s) Performed: Laparoscopic bilateral tubal ligation via fulguration Removal of Nexplanon implant Anesthesia: JOSE Surgeon: Vivian Mott Estimated Blood Loss (ml): 3 Pathology: none sent Condition: stable Disposition: same day Indications for Procedure: This is a 37 y.o. female, 2, para 2, who presents for laparoscopic bilateral tubal ligation via fulgaration and removal of Nexplanon implant for permanent sterilization. Her Nexplanon is due to come out and she no longer wants hormonal control. Operative Findings: Normal uterus tubes and ovaries are noted. Appendix is visualized and appears normal. Uterus is anteverted and sounded to 9 cm. Description of Procedure: The patient is taken to the operating room where she is placed in the dorsal lithotomy position. She is prepped and draped in the normal sterile fashion. Examination is performed under anesthesia. Uterus is found to be in a anteverted position. No adnexal masses were palpated. Next a bivalve speculum was placed in the patient's vagina. An Allis clamp was used to grasp the anterior lip of the cervix. The uterus was sounded to 9 cm. The kroner uterine manipulator was then inserted through the cervix and the balloon was inflated. The Allis clamp is removed, speculum is removed and gloves were changed. Attention was turned to the abdomen. A small stab incision was made with a scalpel just above the umbilicus. A 5 mm disposable bladeless trocar was then inserted into the peritoneal cavity under direct visualization using low flow. Once inside, pneumoperitoneum was achieved with CO2 gas. The insert was removed and the camera was placed. Intraperitoneal placement was confirmed. No bleeding was noted. Next the patient was placed in Trendelenburg position. A small stab incision was made suprapubically and a 5 mm disposable bladeless trocar was inserted into the peritoneal cavity under direct visualization. Once inside pelvic contents were inspected. Next a bipolar Kleppinger instrument was placed through the inferior trocar and the midportion of each tube was brought away from other structures and completely fulgurated on approximate 2-3 cm segment of each tube. Excellent hemostasis was noted. Pictures were taken. Pneumoperitoneum was released after the inferior trocar was removed under direct visualization. The upper trocar was then removed. The skin incisions were then closed with 4-0 Vicryl suture in a subcuticular fashion. Incisions were then injected with half percent Marcaine. Approximately 7 mL were used. Her left arm was visualized and the Nexplanon implant was palpated. Approximately 1 mL of the half percent Marcaine was injected underneath the end of the implant. A 15 blade scalpel was used to incise a small incision at the end of the implant and then the implant was easily through the incision and removed with a hemostat. The incision was then closed with one Steri-Strip. Next the kroner uterine manipulator was removed. Minimal bleeding was noted. All sponge and needle counts are correct. The patient is then taken to recovery room in stable condition.
[2023-04-22 08:31] VITALS: TEMP 97.3
[2023-04-22 08:49] VITALS: RESP 16
[2023-04-22 09:33] VITALS: BP 99/62; PULSE 68
[2023-04-22] MEDS ORDERED: ONDANSETRON 4 MG/2 ML VIAL ONE (09:34)
== END 2023-04-22 10:11 | disposition home or self-care (01) ==
LOC: OR 06:19
PROVIDERS: ATTEND Obstetrics & Gynecology
DX: Z30.2 Encounter for sterilization (principal); F41.9 Anxiety disorder, unspecified; F10.90 Alcohol use, unspecified, uncomplicated; F12.10 Cannabis abuse, uncomplicated; Q21.0 Ventricular septal defect; K58.9 Irritable bowel syndrome, unspecified; Z87.891 Personal history of nicotine dependence; Z79.891 Long term (current) use of opiate analgesic; Z79.899 Other long term (current) drug therapy
CPT/HCPCS: 58670; 11982; 81025; J2250; J0330; J1100; J2710; J2405; J3010; J1170 ×2; J1885; J2704; J2001; J2371; J0665